=== PATIENT | male | born 1945 | race Caucasian/White ===

== ENCOUNTER 2020-06-15 06:02 | Inpatient (IN) ==
[2020-06-15] MEDS ORDERED: Morphine Sulfate 2 MG/ML SYRINGE IVP PRN (09:42)
[2020-06-15] MEDS ORDERED: Naloxone 0.4 MG/ML INJ IVP PRN (09:56)
[2020-06-15 11:30] LABS: Basophils % 0.2 %; Eosinophils % 0.1 %; Hematocrit 41.2 % (37.5-50.1); Hemoglobin 14.1 g/dL (12.9-16.9); Immature Granulocytes % 0.6 % (0-4); Lymphocytes # 3.5 K/mcL (0.6-4.6); Lymphocytes % 18.9 %; Mean Corpuscular HGB Conc 34.2 g/dL (31.6-35.5); Mean Corpuscular Hemoglobin 32.8 pg (28.0-33.3); Mean Corpuscular Volume 95.8 fL (83.0-100.0); Mean Platelet Volume 9.4 fL (9.4-12.4); Monocytes % 10.8 %; Neutrophils # 12.8 K/mcL (1.6-8.9); Platelet Count 382 K/mcL (140-400); Red Cell Distribution Width 13.9 % (11.5-14.5); Segmented Neutrophils % 69.4 %; White Blood Count 18.5 K/mcL (4.3-11.1)
[2020-06-15] MEDS: Ketorolac 15 MG/ML VIAL IVP SCH ×3 (11:36→18:17)
[2020-06-15] MEDS: cefTRIAXone 2,000 MG in Water for inj. (sterile) 20 ML IVP SCH (11:36)
[2020-06-15 11:54] LABS: BUN/Creatinine Ratio 28 (6-26); Blood Urea Nitrogen 27 mg/dL (8-23); Calcium 8.1 mg/dL (8.6-10.3); Carbon Dioxide 21 mEq/L (23-29); Chloride 105 mEq/L (98-107); Glucose 134 mg/dL (70-105); Osmolality,Calculated 291 (280-300); Potassium 3.9 mEq/L (3.5-5.1); Sodium 137 mEq/L (136-145); eGFR For African Americans > 60 (> 60); eGFR For Non-African Americans > 60 (> 60)
[2020-06-15 12:05] LABS: Bilirubin,Urine Negative (Negative); Blood,Urine Moderate (Negative); Clarity,Urine Clear (Clear); Color,Urine Light-Yellow (Yellow); Glucose,Urine (UA) Normal (Normal); Ketones,Urine 20 mg/dL (Negative); Leukocyte Esterase,Urine Trace (Negative); Mucus,Urine Few per lpf (None-Few); Nitrite,Urine Negative (Negative); Protein,Urine Trace mg/dL (Neg-Trace); RBC,Urine 30-50 per hpf (0-3); Urobilinogen,Urine Normal (Normal); WBC,Urine 0-3 per hpf (0-3)
[2020-06-15] MEDS ORDERED: *HR* HYDROmorphone (PF) 1 MG/ML SYRINGE IVP ONE (12:15)
[2020-06-15] MEDS ORDERED: *HR* HYDROmorphone 2 MG/ML SYRINGE IVP PRN (13:39)
[2020-06-15] MEDS ORDERED: 0.9 % Sodium Chloride 1,000 ML IVC SCH (14:00)
[2020-06-15] MEDS: *HR* Heparin 5,000 UNIT/ML VIAL SQ SCH ×2 (14:12→22:08)
[2020-06-15] MEDS ORDERED: *HR* OxyCODONE Immed Rel 15 MG TABLET PO PRN (15:46)
[2020-06-15] MEDS: *HR* OxyCODONE Immed Rel 15 MG TABLET PO PRN ×2 (16:25→22:26)
[2020-06-15] MEDS: Ondansetron 4 MG/2 ML VIAL IVP PRN ×2 (17:13→23:14)
[2020-06-15] MEDS: *HR* OxyCODONE Immed Rel 5 MG TABLET PO PRN (19:13)
[2020-06-15 20:33] LABS: Alanine Aminotransferase 18 Units/L (7-52); Aspartate Amino Transferase 22 Units/L (13-39); Ethanol < 10 mg/dL (Less than 10)
[2020-06-16] MEDS: Pantoprazole 40 MG in 0.9 % Sodium Chloride Mini Bag 100 ML IVC SCH ×2 (00:48→05:56)
[2020-06-16 01:08] LABS: Basophils % 0.1 %; Hematocrit 37.7 % (37.5-50.1); Hemoglobin 12.8 g/dL (12.9-16.9); Immature Granulocytes % 0.5 % (0-4); Lymphocytes # 4.1 K/mcL (0.6-4.6); Lymphocytes % 20.5 %; Mean Corpuscular Hemoglobin 32.7 pg (28.0-33.3); Mean Corpuscular Volume 96.2 fL (83.0-100.0); Mean Platelet Volume 9.6 fL (9.4-12.4); Monocytes # 1.6 K/mcL (0.0-1.3); Monocytes % 8.2 %; Neutrophils # 14.2 K/mcL (1.6-8.9); Platelet Count 346 K/mcL (140-400); Red Blood Count 3.92 M/mcL (4.19-5.50); Red Cell Distribution Width 13.8 % (11.5-14.5); Segmented Neutrophils % 70.7 %
[2020-06-16 01:21] LABS: BUN/Creatinine Ratio 35 (6-26); Blood Urea Nitrogen 33 mg/dL (8-23); Calcium 8.1 mg/dL (8.6-10.3); Carbon Dioxide 23 mEq/L (23-29); Chloride 105 mEq/L (98-107); Glucose 170 mg/dL (70-105); Osmolality,Calculated 293 (280-300); Potassium 3.4 mEq/L (3.5-5.1); Sodium 136 mEq/L (136-145); eGFR For African Americans > 60 (> 60); eGFR For Non-African Americans > 60 (> 60)
[2020-06-16] MEDS: *HR* OxyCODONE Immed Rel 5 MG TABLET PO PRN ×3 (01:39→15:19)
[2020-06-16] MEDS: *HR* OxyCODONE Immed Rel 15 MG TABLET PO PRN (04:52)
[2020-06-16] MEDS: *HR* Heparin 5,000 UNIT/ML VIAL SQ SCH ×2 (04:52→13:58)
[2020-06-16] MEDS: Ketorolac 15 MG/ML VIAL IVP SCH (06:00)
[2020-06-16] MEDS: cefTRIAXone 2,000 MG in Water for inj. (sterile) 20 ML IVP SCH (07:49)
[2020-06-16] MEDS: Pantoprazole 40 MG VIAL IVP SCH ×2 (07:49→17:57)
[2020-06-16] MEDS: Ondansetron 4 MG/2 ML VIAL IVP PRN ×3 (07:55→21:34)
[2020-06-16] MEDS ORDERED: Morphine Sulfate 2 MG/ML SYRINGE IVP ONE (08:25)
[2020-06-16] MEDS: Potassium Chloride Elixir 20 MEQ/15 ML UDC PO SCH ×2 (09:33→11:20)
[2020-06-16] MEDS ORDERED: Morphine Sulfate 2 MG/ML SYRINGE IVP PRN (09:43)
[2020-06-16] MEDS: 0.9 % Sodium Chloride 1,000 ML IVC SCH ×2 (11:17→20:01)
[2020-06-16] MEDS: Acetaminophen IV 1,000 MG/100 ML INFUS..BTL IVPB PRN ×2 (11:43→20:00)
[2020-06-16] MEDS: Morphine Sulfate 2 MG/ML SYRINGE IVP PRN ×2 (13:00→17:56)
[2020-06-16 14:43] LABS: Adenovirus Not Detected (Not Detect); Bordetella Pertussis Not Detected (Not Detect); Chlamydophila pneumoniae Not Detected (Not Detect); Coronavirus 229E Not Detected (Not Detect); Coronavirus HKU1 Not Detected (Not Detect); Coronavirus NL63 Not Detected (Not Detect); Coronavirus OC43 Not Detected (Not Detect); Human Metapneumovirus Not Detected (Not Detect); Human Rhinovirus/Enterovirus DETECTED (Not Detect); Influenza A Subtype 2009 H1 Not Detected (Not Detect); Influenza B Not Detected (Not Detect); Mycoplasma pneumoniae Not Detected (Not Detect); Parainfluenza Virus 1 Not Detected (Not Detect); Parainfluenza Virus 2 Not Detected (Not Detect); Parainfluenza Virus 3 Not Detected (Not Detect); Parainfluenza Virus 4 Not Detected (Not Detect); Respiratory Syncytial Virus Not Detected (Not Detect); SARS-CoV-2 Not Detected (Not Detect)
[2020-06-16] MEDS ORDERED: *HR* FentaNYL (PF) 100 MCG/2 ML VIAL ONE (15:55)
[2020-06-16] MEDS ORDERED: *HR* Midazolam HCl 5 MG/5 ML VIAL IVP ONE ×3 (15:56→23:56)
[2020-06-16] MEDS ORDERED: *HR* FentaNYL (PF) 100 MCG/2 ML VIAL IVP ONE ×2 (16:23→23:56)
[2020-06-16] MEDS ORDERED: *HR* EPINEPHrine 1 MG/10 ML SYRINGE INTRATRACH PRN (16:44)
[2020-06-16] MEDS ORDERED: 0.9 % Sodium Chloride 1,000 ML IV ONE (21:02)
[2020-06-16 21:38] LABS: Hematocrit 23.7 % (37.5-50.1)
[2020-06-16 21:39] LABS: Hemoglobin 8.2 g/dL (12.9-16.9)
[2020-06-16] MEDS ORDERED: 0.9 % Sodium Chloride 250 ML ONE (22:10)
[2020-06-16 23:59] LABS: Prothrombin Time 22.6 Seconds (9.4-12.1)
[2020-06-17] MEDS: Pantoprazole 40 MG in 0.9 % Sodium Chloride Mini Bag 100 ML IVC SCH ×5 (00:06→20:10)
[2020-06-17] MEDS ORDERED: 0.9 % Sodium Chloride 1,000 ML IVC ONE (00:23)
[2020-06-17] MEDS ORDERED: 0.9 % Sodium Chloride 250 ML IVC SCH ×2 (00:30)
[2020-06-17] MEDS ORDERED: 0.9 % Sodium Chloride 1,000 ML ONE ×2 (00:39→09:35)
[2020-06-17] MEDS: Morphine Sulfate 2 MG/ML SYRINGE IVP PRN (01:34)
[2020-06-17] MEDS: Ondansetron 4 MG/2 ML VIAL IVP PRN (01:34)
[2020-06-17 01:43] LABS: Hematocrit 24.2 % (37.5-50.1); Hemoglobin 8.1 g/dL (12.9-16.9)
[2020-06-17 02:05] LABS: BUN/Creatinine Ratio 40 (6-26); Blood Urea Nitrogen 38 mg/dL (8-23); Carbon Dioxide 19 mEq/L (23-29); Chloride 120 mEq/L (98-107); Glucose 172 mg/dL (70-105); Magnesium 1.5 mg/dL (1.6-2.6); Osmolality,Calculated 307 (280-300); Phosphorous 1.6 mg/dL (2.7-4.5); Potassium 3.6 mEq/L (3.5-5.1); Sodium 142 mEq/L (136-145); eGFR For African Americans > 60 (> 60); eGFR For Non-African Americans > 60 (> 60)
[2020-06-17] MEDS ORDERED: *HR* FentaNYL (PF) 100 MCG/2 ML VIAL ONE (02:29)
[2020-06-17] MEDS ORDERED: *HR* Propofol 200 MG/20 ML VIAL IVP ONE (02:29)
[2020-06-17] MEDS ORDERED: Lidocaine -MPF 2% 2 ML VIAL ONE (02:29)
[2020-06-17] MEDS ORDERED: *HR* Succinylcholine 200 MG/10 ML VIAL IVP ONE (02:29)
[2020-06-17] MEDS: 0.9 % Sodium Chloride 1,000 ML IVC SCH (02:34)
[2020-06-17] MEDS ORDERED: *HR* EPINEPHrine 1 MG/10 ML SYRINGE INTRATRACH PRN (03:22)
[2020-06-17] MEDS ORDERED: Artificial Tears SOLN 15 ML BOTTLE BOTH EYES PRN (03:25)
[2020-06-17] MEDS ORDERED: Midazolam HCl 50 MG/100 ML IV.SOLN IVC SCH (03:30)
[2020-06-17] MEDS ORDERED: *HR* Midazolam HCl 5 MG/5 ML VIAL IVP ONE ×2 (03:38→03:39)
[2020-06-17] MEDS: Calcium Gluconate 1gm/50mL 1 GM/50 ML BAG IVPB PRN ×2 (03:42→14:57)
[2020-06-17] MEDS: Potassium Chloride 40 MEQ/200 ML BAG IVPB PRN ×2 (03:43→15:01)
[2020-06-17] MEDS: Artificial Tears SOLN 15 ML BOTTLE BOTH EYES SCH ×6 (04:15→23:39)
[2020-06-17] MEDS: FentaNYL (PF) 1,000 MCG/100 ML IV.SOLN IVC SCH ×3 (04:16→22:52)
[2020-06-17 04:26] LABS: VBG Ionized Calcium 1.05 mmol/L (1.15-1.35)
[2020-06-17 04:39] LABS: Basophils % 0.1 %
[2020-06-17 04:41] LABS: Hematocrit 21.9 % (37.5-50.1); Hemoglobin 7.3 g/dL (12.9-16.9); Immature Granulocytes % 1.2 % (0-4); Lymphocytes # 8.2 K/mcL (0.6-4.6); Lymphocytes % 30.2 %; Mean Corpuscular HGB Conc 33.3 g/dL (31.6-35.5); Mean Corpuscular Hemoglobin 31.7 pg (28.0-33.3); Mean Corpuscular Volume 95.2 fL (83.0-100.0); Mean Platelet Volume 10.7 fL (9.4-12.4); Monocytes # 1.7 K/mcL (0.0-1.3); Monocytes % 6.2 %; Nucleated Red Blood Cells 0.1 /100 WBC (0); Platelet Count 162 K/mcL (140-400); Red Cell Distribution Width 17.3 % (11.5-14.5); Segmented Neutrophils % 62.3 %; White Blood Count 27.3 K/mcL (4.3-11.1)
[2020-06-17 04:49] LABS: ABG Base Excess -4 mEq/L (-2 to 3); ABG HCO3 21 mEq/L (21-27); ABG Oxygen Saturation 98 % (95-98); ABG PCO2 34 mmHg (35-45); ABG PH 7.39 pH Units (7.32-7.45); ABG PO2 98 mmHg (85-104); ABG TCO2 22 mEq/L (20-26); Blood Gas Modality AF; Blood Gas VT 450 cc
[2020-06-17 04:52] LABS: INR 1.7; Prothrombin Time 19.1 Seconds (9.4-12.1)
[2020-06-17 04:53] LABS: BUN/Creatinine Ratio 38 (6-26); Blood Urea Nitrogen 36 mg/dL (8-23); Calcium 6.6 mg/dL (8.6-10.3); Carbon Dioxide 19 mEq/L (23-29); Chloride 117 mEq/L (98-107); Glucose 170 mg/dL (70-105); Osmolality,Calculated 306 (280-300); Potassium 3.8 mEq/L (3.5-5.1); Sodium 142 mEq/L (136-145); eGFR For African Americans > 60 (> 60); eGFR For Non-African Americans > 60 (> 60)
[2020-06-17 04:54] LABS: Activated Partial Thrombo Time 23.2 Seconds (26.0-36.0)
[2020-06-17] MEDS ORDERED: Furosemide 20 MG/2 ML VIAL IVP ONE ×2 (05:59→16:00)
[2020-06-17] MEDS: Chlorhexidine Rinse 15 ML MOUTHWASH MM SCH ×2 (08:37→19:56)
[2020-06-17] MEDS ORDERED: Heparin 1,000 UNITS/500 mL 500 ML ONE (09:22)
[2020-06-17] MEDS ORDERED: 0.9 % Sodium Chloride 500 ML ONE (09:22)
[2020-06-17] MEDS ORDERED: Lidocaine/EPI 1:100k 1% 50 ML VIAL ONE (09:22)
[2020-06-17] MEDS ORDERED: MethylPREDNISolone 40 MG/ML VIAL IVP STA (09:33)
[2020-06-17] MEDS ORDERED: methylPREDNISolone 125 MG/2 ML VIAL ONE (09:35)
[2020-06-17] MEDS ORDERED: Isovue-300 50ML VIAL IVP ONE ×2 (10:07→10:21)
[2020-06-17] MEDS: cefTRIAXone 2,000 MG in Water for inj. (sterile) 20 ML IVP SCH (11:50)
[2020-06-17 12:29] LABS: VBG Ionized Calcium 1.08 mmol/L (1.15-1.35)
[2020-06-17 12:29] LABS: Hematocrit 24.2 % (37.5-50.1); Hemoglobin 7.8 g/dL (12.9-16.9)
[2020-06-17 12:45] LABS: BUN/Creatinine Ratio 33 (6-26); Blood Urea Nitrogen 32 mg/dL (8-23); Calcium 6.9 mg/dL (8.6-10.3); Carbon Dioxide 22 mEq/L (23-29); Chloride 117 mEq/L (98-107); Glucose 132 mg/dL (70-105); Osmolality,Calculated 307 (280-300); Potassium 3.6 mEq/L (3.5-5.1); Sodium 144 mEq/L (136-145); eGFR For African Americans > 60 (> 60); eGFR For Non-African Americans > 60 (> 60)
[2020-06-17] MEDS ORDERED: Albumin Human 5% 12.5 GM/250 ML IV.SOLN IVPB ONE (13:46)
[2020-06-17 18:12] LABS: Hematocrit 27.7 % (37.5-50.1); Hemoglobin 9.3 g/dL (12.9-16.9)
[2020-06-18] MEDS: Pantoprazole 40 MG in 0.9 % Sodium Chloride Mini Bag 100 ML IVC SCH ×6 (01:25→21:56)
[2020-06-18] MEDS: Artificial Tears SOLN 15 ML BOTTLE BOTH EYES SCH ×3 (03:32→12:02)
[2020-06-18 04:43] LABS: Basophils % 0.2 %; Hemoglobin 8.3 g/dL (12.9-16.9)
[2020-06-18 04:44] LABS: Basophils # 0.1 K/mcL (0.0-0.2); Hematocrit 24.9 % (37.5-50.1); Immature Granulocytes % 1.6 % (0-4); Lymphocytes # 4.8 K/mcL (0.6-4.6); Lymphocytes % 19.1 %; Mean Corpuscular HGB Conc 33.3 g/dL (31.6-35.5); Mean Corpuscular Hemoglobin 30.4 pg (28.0-33.3); Mean Corpuscular Volume 91.2 fL (83.0-100.0); Mean Platelet Volume 10.3 fL (9.4-12.4); Monocytes # 1.4 K/mcL (0.0-1.3); Monocytes % 5.7 %; Neutrophils # 18.4 K/mcL (1.6-8.9); Nucleated Red Blood Cells 0.1 /100 WBC (0); Platelet Count 148 K/mcL (140-400); Red Blood Count 2.73 M/mcL (4.19-5.50); Red Cell Distribution Width 19.9 % (11.5-14.5); Segmented Neutrophils % 73.4 %
[2020-06-18 05:01] LABS: Anisocytosis 1+ (Not Present); Platelet Estimate Normal (Normal)
[2020-06-18 05:03] LABS: BUN/Creatinine Ratio 25 (6-26); Blood Urea Nitrogen 28 mg/dL (8-23); Calcium 7.7 mg/dL (8.6-10.3); Carbon Dioxide 24 mEq/L (23-29); Chloride 115 mEq/L (98-107); Glucose 116 mg/dL (70-105); Osmolality,Calculated 306 (280-300); Phosphorous 4.9 mg/dL (2.7-4.5); Potassium 3.8 mEq/L (3.5-5.1); Sodium 145 mEq/L (136-145); eGFR For African Americans > 60 (> 60); eGFR For Non-African Americans > 60 (> 60)
[2020-06-18 05:41] LABS: ABG Base Excess 0 mEq/L (-2 to 3); ABG HCO3 25 mEq/L (21-27); ABG Oxygen Saturation 96 % (95-98); ABG PCO2 44 mmHg (35-45); ABG PH 7.37 pH Units (7.32-7.45); ABG PO2 87 mmHg (85-104); ABG TCO2 27 mEq/L (20-26); Blood Gas Modality AF; Blood Gas VT 450 cc
[2020-06-18] MEDS: Potassium Chloride 40 MEQ/200 ML BAG IVPB PRN (05:55)
[2020-06-18 06:19] LABS: VBG Ionized Calcium 1.13 mmol/L (1.15-1.35)
[2020-06-18] MEDS: FentaNYL (PF) 1,000 MCG/100 ML IV.SOLN IVC SCH (08:16)
[2020-06-18] MEDS: Chlorhexidine Rinse 15 ML MOUTHWASH MM SCH (08:30)
[2020-06-18] MEDS: Morphine Sulfate 2 MG/ML SYRINGE IVP PRN ×2 (09:53→18:21)
[2020-06-18] MEDS ORDERED: Naloxone 0.4 MG/ML INJ IVP PRN (10:42)
[2020-06-18] MEDS: *HR* OxyCODONE Immed Rel 5 MG TABLET PO PRN ×3 (11:04→20:18)
[2020-06-18] MEDS: cefTRIAXone 2,000 MG in Water for inj. (sterile) 20 ML IVP SCH (11:04)
[2020-06-18] MEDS ORDERED: *HR* OxyCODONE Immed Rel 15 MG TABLET PO ONE (12:30)
[2020-06-18 16:45] LABS: Hematocrit 24.5 % (37.5-50.1); Hemoglobin 7.9 g/dL (12.9-16.9)
[2020-06-18 23:27] LABS: Hematocrit 20.5 % (37.5-50.1); Hemoglobin 6.7 g/dL (12.9-16.9)
[2020-06-19] MEDS: Pantoprazole 40 MG in 0.9 % Sodium Chloride Mini Bag 100 ML IVC SCH ×4 (03:28→18:48)
[2020-06-19] MEDS: *HR* OxyCODONE Immed Rel 5 MG TABLET PO PRN ×2 (04:07→07:56)
[2020-06-19 04:13] LABS: Basophils # 0.1 K/mcL (0.0-0.2); Basophils % 0.3 %; Eosinophils # 0.3 K/mcL (0.0-0.6); Eosinophils % 1.3 %; Hematocrit 20.1 % (37.5-50.1); Hemoglobin 6.6 g/dL (12.9-16.9); Immature Granulocytes % 3.1 % (0-4); Lymphocytes # 8.9 K/mcL (0.6-4.6); Lymphocytes % 36.4 %; Mean Corpuscular HGB Conc 32.8 g/dL (31.6-35.5); Mean Corpuscular Hemoglobin 30.8 pg (28.0-33.3); Mean Corpuscular Volume 93.9 fL (83.0-100.0); Mean Platelet Volume 10.5 fL (9.4-12.4); Monocytes # 1.5 K/mcL (0.0-1.3); Nucleated Red Blood Cells 3.6 /100 WBC (0); Platelet Count 149 K/mcL (140-400); Red Blood Count 2.14 M/mcL (4.19-5.50); Red Cell Distribution Width 18.7 % (11.5-14.5); Segmented Neutrophils % 52.9 %; White Blood Count 24.5 K/mcL (4.3-11.1)
[2020-06-19] MEDS ORDERED: 0.9 % Sodium Chloride 250 ML IVC SCH (04:30)
[2020-06-19 04:31] LABS: BUN/Creatinine Ratio 26 (6-26); Blood Urea Nitrogen 24 mg/dL (8-23); Calcium 7.2 mg/dL (8.6-10.3); Carbon Dioxide 26 mEq/L (23-29); Chloride 108 mEq/L (98-107); Glucose 105 mg/dL (70-105); Magnesium 1.7 mg/dL (1.6-2.6); Osmolality,Calculated 292 (280-300); Phosphorous 2.8 mg/dL (2.7-4.5); Potassium 3.4 mEq/L (3.5-5.1); Sodium 139 mEq/L (136-145); eGFR For African Americans > 60 (> 60); eGFR For Non-African Americans > 60 (> 60)
[2020-06-19] MEDS: Calcium Gluconate 1gm/50mL 1 GM/50 ML BAG IVPB PRN (05:18)
[2020-06-19] MEDS: Potassium Chloride 40 MEQ/200 ML BAG IVPB PRN (05:19)
[2020-06-19] MEDS: Morphine Sulfate 2 MG/ML SYRINGE IVP PRN (07:04)
[2020-06-19] MEDS ORDERED: *HR* OxyCODONE Immed Rel 15 MG TABLET PO PRN (09:38)
[2020-06-19] MEDS: *HR* OxyCODONE Immed Rel 15 MG TABLET PO SCH ×4 (10:38→22:20)
[2020-06-19] MEDS ORDERED: Pantoprazole 40 MG VIAL ONE (11:16)
[2020-06-19] MEDS: cefTRIAXone 2,000 MG in Water for inj. (sterile) 20 ML IVP SCH (11:19)
[2020-06-19 11:27] LABS: Hematocrit 25.9 % (37.5-50.1)
[2020-06-19 11:30] LABS: INR 1.1; Prothrombin Time 12.4 Seconds (9.4-12.1)
[2020-06-19 11:31] LABS: Hemoglobin 8.5 g/dL (12.9-16.9)
[2020-06-19 11:33] LABS: Activated Partial Thrombo Time 23.9 Seconds (26.0-36.0)
[2020-06-20] MEDS ORDERED: *HR* Metoprolol 5 MG/5 ML VIAL IVP ONE (02:09)
[2020-06-20] MEDS: Pantoprazole 40 MG in 0.9 % Sodium Chloride Mini Bag 100 ML IVC SCH ×3 (03:28→12:38)
[2020-06-20] MEDS: *HR* OxyCODONE Immed Rel 15 MG TABLET PO SCH ×6 (03:39→23:59)
[2020-06-20 04:36] LABS: Basophils # 0.1 K/mcL (0.0-0.2); Basophils % 0.5 %; Eosinophils # 0.5 K/mcL (0.0-0.6); Eosinophils % 2.4 %; Hematocrit 25.6 % (37.5-50.1); Hemoglobin 8.3 g/dL (12.9-16.9); Immature Granulocytes % 3.5 % (0-4); Lymphocytes # 5.3 K/mcL (0.6-4.6); Lymphocytes % 25.4 %; Mean Corpuscular HGB Conc 32.4 g/dL (31.6-35.5); Mean Corpuscular Hemoglobin 30.5 pg (28.0-33.3); Mean Corpuscular Volume 94.1 fL (83.0-100.0); Mean Platelet Volume 10.3 fL (9.4-12.4); Monocytes # 1.5 K/mcL (0.0-1.3); Monocytes % 7.1 %; Neutrophils # 12.8 K/mcL (1.6-8.9); Platelet Count 162 K/mcL (140-400); Red Blood Count 2.72 M/mcL (4.19-5.50); Red Cell Distribution Width 18.3 % (11.5-14.5); Segmented Neutrophils % 61.1 %
[2020-06-20 04:37] LABS: VBG Ionized Calcium 1.11 mmol/L (1.15-1.35)
[2020-06-20 04:55] LABS: Alanine Aminotransferase 64 Units/L (7-52); Albumin 2.8 g/dL (3.5-5.7); Albumin/Globulin Ratio 1.4 (1.1-2.2); Alkaline Phosphatase 50 Units/L (34-104); Aspartate Amino Transferase 48 Units/L (13-39); BUN/Creatinine Ratio 15 (6-26); Bilirubin,Total 0.3 mg/dL (0.3-1.0); Blood Urea Nitrogen 15 mg/dL (8-23); Calcium 7.6 mg/dL (8.6-10.3); Carbon Dioxide 26 mEq/L (23-29); Chloride 105 mEq/L (98-107); Glucose 116 mg/dL (70-105); Osmolality,Calculated 284 (280-300); Potassium 3.3 mEq/L (3.5-5.1); Sodium 136 mEq/L (136-145); Total Protein 4.8 g/dL (6.4-8.9); eGFR For African Americans > 60 (> 60); eGFR For Non-African Americans > 60 (> 60)
[2020-06-20 04:56] LABS: BUN/Creatinine Ratio 15 (6-26); Blood Urea Nitrogen 15 mg/dL (8-23); Calcium 7.5 mg/dL (8.6-10.3); Carbon Dioxide 26 mEq/L (23-29); Chloride 106 mEq/L (98-107); Glucose 116 mg/dL (70-105); Magnesium 1.7 mg/dL (1.6-2.6); Osmolality,Calculated 284 (280-300); Phosphorous 3.3 mg/dL (2.7-4.5); Potassium 3.3 mEq/L (3.5-5.1); Sodium 136 mEq/L (136-145); eGFR For African Americans > 60 (> 60); eGFR For Non-African Americans > 60 (> 60)
[2020-06-20] MEDS: cefTRIAXone 2,000 MG in Water for inj. (sterile) 20 ML IVP SCH (11:37)
[2020-06-20] MEDS: Potassium Chloride Elixir 20 MEQ/15 ML UDC PO SCH ×2 (11:37→15:09)
[2020-06-20] MEDS: Pantoprazole 40 MG VIAL IVP SCH (17:17)
[2020-06-21] MEDS ORDERED: *HR* Metoprolol 5 MG/5 ML VIAL IVP ONE (00:12)
[2020-06-21 00:47] LABS: Basophils # 0.1 K/mcL (0.0-0.2); Basophils % 0.6 %; Eosinophils # 0.6 K/mcL (0.0-0.6); Eosinophils % 3.4 %; Hematocrit 25.4 % (37.5-50.1); Hemoglobin 8.1 g/dL (12.9-16.9); Immature Granulocytes % 4.2 % (0-4); Lymphocytes # 5.2 K/mcL (0.6-4.6); Lymphocytes % 28.5 %; Mean Corpuscular HGB Conc 31.9 g/dL (31.6-35.5); Mean Corpuscular Volume 94.1 fL (83.0-100.0); Monocytes # 1.4 K/mcL (0.0-1.3); Monocytes % 7.5 %; Neutrophils # 10.1 K/mcL (1.6-8.9); Nucleated Red Blood Cells 2.7 /100 WBC (0); Platelet Count 194 K/mcL (140-400); Red Cell Distribution Width 18.5 % (11.5-14.5); Segmented Neutrophils % 55.8 %; White Blood Count 18.2 K/mcL (4.3-11.1)
[2020-06-21 01:14] LABS: BUN/Creatinine Ratio 12 (6-26); Blood Urea Nitrogen 13 mg/dL (8-23); Calcium 7.5 mg/dL (8.6-10.3); Carbon Dioxide 22 mEq/L (23-29); Chloride 106 mEq/L (98-107); Glucose 122 mg/dL (70-105); Magnesium 1.8 mg/dL (1.6-2.6); Osmolality,Calculated 281 (280-300); Potassium 3.8 mEq/L (3.5-5.1); Sodium 135 mEq/L (136-145); eGFR For African Americans > 60 (> 60); eGFR For Non-African Americans > 60 (> 60)
[2020-06-21] MEDS: Calcium Gluconate 1gm/50mL 1 GM/50 ML BAG IVPB SCH ×2 (01:29→02:16)
[2020-06-21] MEDS: Morphine Sulfate 2 MG/ML SYRINGE IVP PRN (03:12)
[2020-06-21] MEDS: *HR* OxyCODONE Immed Rel 15 MG TABLET PO SCH ×3 (03:50→11:31)
[2020-06-21] MEDS: Pantoprazole 40 MG VIAL IVP SCH (06:39)
[2020-06-21 10:08] VITALS: BP 98/57
[2020-06-21] MEDS: cefTRIAXone 2,000 MG in Water for inj. (sterile) 20 ML IVP SCH (11:31)
== END 2020-06-21 13:28 | disposition home or self-care (01) | DRG 853 ==
LOC: 3BNU → 2NNU 06-16 17:50 → ICNU 06-16 23:49 → 3ANU 06-19 09:06
PROVIDERS: ADMIT Family Medicine; ATTEND Family Medicine

== ENCOUNTER 2020-07-05 14:26 | Inpatient (IN) ==
[2020-07-05] MEDS ORDERED: *HR* HYDROmorphone (PF) 1 MG/ML SYRINGE IVP ONE ×2 (15:19→17:40)
[2020-07-05] MEDS ORDERED: Pantoprazole 40 MG VIAL IVP ONE (15:20)
[2020-07-05 15:49] LABS: Basophils # 0.1 K/mcL (0.0-0.2); Basophils % 0.4 %; Eosinophils # 0.3 K/mcL (0.0-0.6); Eosinophils % 1.5 %; Hematocrit 29.3 % (37.5-50.1); Hemoglobin 8.9 g/dL (12.9-16.9); Lymphocytes # 4.2 K/mcL (0.6-4.6); Lymphocytes % 19.3 %; Mean Corpuscular HGB Conc 30.4 g/dL (31.6-35.5); Mean Corpuscular Hemoglobin 28.3 pg (28.0-33.3); Mean Corpuscular Volume 93.3 fL (83.0-100.0); Mean Platelet Volume 9.2 fL (9.4-12.4); Monocytes % 13.9 %; Neutrophils # 13.9 K/mcL (1.6-8.9); Nucleated Red Blood Cells 0.4 /100 WBC (0); Platelet Count 587 K/mcL (140-400); Red Blood Count 3.14 M/mcL (4.19-5.50); Red Cell Distribution Width 16.3 % (11.5-14.5); Segmented Neutrophils % 63.9 %; White Blood Count 21.8 K/mcL (4.3-11.1)
[2020-07-05 15:55] LABS: INR 1.2; Prothrombin Time 13.9 Seconds (9.4-12.1)
[2020-07-05 16:08] LABS: Potassium 4.2 mEq/L (3.5-5.1)
[2020-07-05 16:09] LABS: Albumin 3.3 g/dL (3.5-5.7); Bilirubin,Indirect 0.3 mg/dL (0.0-1.0); Bilirubin,Total 0.3 mg/dL (0.3-1.0); Globulin 3.4 g/dL (2.4-3.5); Total Protein 6.7 g/dL (6.4-8.9)
[2020-07-05 17:35] LABS: Hematocrit 27.8 % (37.5-50.1); Hemoglobin 8.4 g/dL (12.9-16.9)
[2020-07-05] MEDS ORDERED: Naloxone 0.4 MG/ML INJ IVP PRN (18:24)
[2020-07-05] MEDS ORDERED: Ondansetron 4 MG/2 ML VIAL IVP PRN (18:24)
[2020-07-05] MEDS: *HR* HYDROmorphone 2 MG/ML SYRINGE IVP PRN (21:00)
[2020-07-05] MEDS: Piperacillin/Tazobactam 3.375 GM in 0.9 % Sodium Chloride Mini Bag 100 ML IVPB SCH (21:12)
[2020-07-05] MEDS: 0.9 % Sodium Chloride 1,000 ML IVC SCH (21:12)
[2020-07-05 22:56] LABS: Hematocrit 27.4 % (37.5-50.1); Hemoglobin 8.4 g/dL (12.9-16.9)
[2020-07-06] MEDS: *HR* HYDROmorphone 2 MG/ML SYRINGE IVP PRN ×6 (01:01→22:15)
[2020-07-06] MEDS: Piperacillin/Tazobactam 3.375 GM in 0.9 % Sodium Chloride Mini Bag 100 ML IVPB SCH ×2 (03:57→11:35)
[2020-07-06] MEDS: Pantoprazole 40 MG VIAL IVP SCH ×2 (05:14→17:57)
[2020-07-06 05:47] LABS: BUN/Creatinine Ratio 10 (6-26); Blood Urea Nitrogen 13 mg/dL (8-23); Calcium 8.5 mg/dL (8.6-10.3); Carbon Dioxide 22 mEq/L (23-29); Chloride 104 mEq/L (98-107); Ferritin 36 ng/mL (20-250); Glucose 98 mg/dL (70-105); Iron < 10 mcg/dL (65-175); Osmolality,Calculated 280 (280-300); Potassium 4.3 mEq/L (3.5-5.1); Sodium 135 mEq/L (136-145); Transferrin 209 mg/dL (203-362); eGFR For African Americans > 60 (> 60); eGFR For Non-African Americans 55 (> 60)
[2020-07-06 05:48] LABS: Hemoglobin 9.1 g/dL (12.9-16.9)
[2020-07-06 05:49] LABS: Basophils # 0.1 K/mcL (0.0-0.2); Basophils % 0.4 %; Eosinophils # 0.7 K/mcL (0.0-0.6); Eosinophils % 4.3 %; Hematocrit 30.5 % (37.5-50.1); Hemoglobin 9.1 g/dL (12.9-16.9); Immature Granulocytes % 0.8 % (0-4); Lymphocytes # 3.5 K/mcL (0.6-4.6); Lymphocytes % 22.1 %; Mean Corpuscular HGB Conc 29.8 g/dL (31.6-35.5); Mean Corpuscular Hemoglobin 27.8 pg (28.0-33.3); Mean Corpuscular Volume 93.3 fL (83.0-100.0); Monocytes # 1.9 K/mcL (0.0-1.3); Monocytes % 12.1 %; Neutrophils # 9.6 K/mcL (1.6-8.9); Nucleated Red Blood Cells 0.7 /100 WBC (0); Platelet Count 618 K/mcL (140-400); Red Blood Count 3.27 M/mcL (4.19-5.50); Red Cell Distribution Width 16.3 % (11.5-14.5); Segmented Neutrophils % 60.3 %; White Blood Count 15.9 K/mcL (4.3-11.1)
[2020-07-06 05:52] LABS: Folate > 22.3 ng/mL (3.0-16.0); Vitamin B12 424 pg/mL (250-1100)
[2020-07-06] MEDS: Finasteride 5 MG TABLET PO SCH (07:59)
[2020-07-06] MEDS ORDERED: *HR* HYDROmorphone 2 MG/ML SYRINGE IVP PRN (09:50)
[2020-07-06 11:19] LABS: Hematocrit 27.4 % (37.5-50.1); Hemoglobin 8.4 g/dL (12.9-16.9)
[2020-07-06] MEDS: Metoprolol XL (24 HR) Succ 25 MG TAB.ER.24H PO SCH (11:34)
[2020-07-06] MEDS: *HR* OxyCODONE Immed Rel 5 MG TABLET PO SCH ×2 (11:34→15:41)
[2020-07-06] MEDS: Acetaminophen 325 MG TABLET PO PRN (11:34)
[2020-07-06] MEDS: 0.9 % Sodium Chloride 1,000 ML IVC SCH ×2 (11:35→20:54)
[2020-07-06 17:26] LABS: Hematocrit 27.3 % (37.5-50.1); Hemoglobin 8.6 g/dL (12.9-16.9)
[2020-07-06 17:56] LABS: Adenovirus F 40/41 PCR Not detected (Not detect); Astrovirus PCR Not detected (Not detect); Campylobacter by PCR Not detected (Not detect); Cryptosporidium by PCR Not detected (Not detect); Cyclospora cayetanensis PCR Not detected (Not detect); E. coli O157 by PCR Not detected (Not detect); Entamoeba histolytica PCR Not detected (Not detect); Enteroaggregative E.coli(EAEC) Not detected (Not detect); Enteropathogenic E.coli(EPEC) Not detected (Not detect); Enterotoxigenic E.coli (ETEC) Not detected (Not detect); Giardia lamblia PCR Not detected (Not detect); Norovirus GI/GII PCR Not detected (Not detect); Plesiomonas shigelloides PCR Not detected (Not detect); Rotavirus A PCR Not detected (Not detect); Salmonella PCR Not detected (Not detect); Sapovirus PCR Not detected (Not detect); Shig/EnteroinvasiveE coli EIEC Not detected (Not detect); Shigalike tox-prod E coli STEC Not detected (Not detect); Vibrio PCR Not detected (Not detect); Vibrio cholerae PCR Not detected (Not detect); Yersinia enterocolitica PCR Not detected (Not detect)
[2020-07-06 18:03] LABS: C.difficile Toxin A/B Gene PCR DETECTED (Not detect)
[2020-07-06] MEDS: *HR* OxyCODONE Immed Rel 15 MG TABLET PO PRN (20:54)
[2020-07-06] MEDS: Vancomycin Oral Soln 125 MG/2.5 ML UDC PO SCH (22:44)
[2020-07-07] MEDS: Acetaminophen 325 MG TABLET PO PRN (00:06)
[2020-07-07] MEDS: *HR* HYDROmorphone 2 MG/ML SYRINGE IVP PRN ×5 (02:16→21:39)
[2020-07-07] MEDS: *HR* OxyCODONE Immed Rel 15 MG TABLET PO PRN ×2 (04:06→10:05)
[2020-07-07] MEDS: Pantoprazole 40 MG VIAL IVP SCH ×2 (05:33→16:48)
[2020-07-07] MEDS: 0.9 % Sodium Chloride 1,000 ML IVC SCH ×2 (06:20→16:49)
[2020-07-07 06:29] LABS: Hematocrit 26.1 % (37.5-50.1); Hemoglobin 8.1 g/dL (12.9-16.9); Mean Corpuscular Volume 93.5 fL (83.0-100.0); Mean Platelet Volume 8.9 fL (9.4-12.4); Nucleated Red Blood Cells 0.2 /100 WBC (0); Platelet Count 510 K/mcL (140-400); Red Blood Count 2.79 M/mcL (4.19-5.50); Red Cell Distribution Width 16.2 % (11.5-14.5)
[2020-07-07 06:33] LABS: White Blood Count 33.8 K/mcL (4.3-11.1)
[2020-07-07 06:43] LABS: BUN/Creatinine Ratio 10 (6-26); Blood Urea Nitrogen 10 mg/dL (8-23); Carbon Dioxide 21 mEq/L (23-29); Chloride 105 mEq/L (98-107); Glucose 82 mg/dL (70-105); Magnesium 1.8 mg/dL (1.6-2.6); Osmolality,Calculated 278 (280-300); Potassium 3.8 mEq/L (3.5-5.1); Sodium 135 mEq/L (136-145); eGFR For African Americans > 60 (> 60); eGFR For Non-African Americans > 60 (> 60)
[2020-07-07 06:53] LABS: Macrocytosis Present (Not Present)
[2020-07-07 06:54] LABS: Hypochromasia Present (Not Present); Toxic Granulation Present (Not Present)
[2020-07-07 06:56] LABS: Lymphocytes # 3.4 K/mcL (0.6-4.6); Monocytes # 1.4 K/mcL (0.0-1.3); Neutrophils # 29.1 K/mcL (1.6-8.9); Polychromasia 1+ (Not Present); Toxic Vacuolation Present (Not Present)
[2020-07-07] MEDS: Vancomycin Oral Soln 125 MG/2.5 ML UDC PO SCH ×4 (08:53→21:38)
[2020-07-07] MEDS: Metoprolol XL (24 HR) Succ 25 MG TAB.ER.24H PO SCH (08:53)
[2020-07-07] MEDS: Finasteride 5 MG TABLET PO SCH (08:53)
[2020-07-07] MEDS: Acetaminophen IV 1,000 MG/100 ML INFUS..BTL IVPB SCH ×3 (10:10→16:48)
[2020-07-07] MEDS: MetroNIDAZOLE 500 MG/100 ML 500 MG/100 ML BAG IVPB SCH (16:49)
[2020-07-07] MEDS: *HR* OxyCODONE Immed Rel 15 MG TABLET PO SCH ×2 (18:22→22:43)
[2020-07-08] MEDS: MetroNIDAZOLE 500 MG/100 ML 500 MG/100 ML BAG IVPB SCH ×4 (00:10→23:45)
[2020-07-08] MEDS: Acetaminophen IV 1,000 MG/100 ML INFUS..BTL IVPB SCH ×5 (01:15→23:26)
[2020-07-08] MEDS: *HR* OxyCODONE Immed Rel 15 MG TABLET PO SCH ×6 (03:04→22:03)
[2020-07-08] MEDS: 0.9 % Sodium Chloride 1,000 ML IVC SCH ×2 (03:10→17:18)
[2020-07-08] MEDS: Pantoprazole 40 MG VIAL IVP SCH ×2 (06:10→17:19)
[2020-07-08 08:03] LABS: Basophils # 0.1 K/mcL (0.0-0.2); Basophils % 0.4 %; Eosinophils % 5.6 %; Hematocrit 27.2 % (37.5-50.1); Hemoglobin 8.3 g/dL (12.9-16.9); Immature Granulocytes % 1.3 % (0-4); Lymphocytes # 3.8 K/mcL (0.6-4.6); Mean Corpuscular HGB Conc 30.5 g/dL (31.6-35.5); Mean Corpuscular Hemoglobin 28.7 pg (28.0-33.3); Mean Corpuscular Volume 94.1 fL (83.0-100.0); Mean Platelet Volume 8.9 fL (9.4-12.4); Monocytes # 1.7 K/mcL (0.0-1.3); Monocytes % 9.6 %; Neutrophils # 11.2 K/mcL (1.6-8.9); Nucleated Red Blood Cells 0.6 /100 WBC (0); Platelet Count 513 K/mcL (140-400); Red Blood Count 2.89 M/mcL (4.19-5.50); Red Cell Distribution Width 16.4 % (11.5-14.5); Segmented Neutrophils % 62.1 %; White Blood Count 18.1 K/mcL (4.3-11.1)
[2020-07-08 08:33] LABS: Alanine Aminotransferase 6 Units/L (7-52); Albumin 2.6 g/dL (3.5-5.7); Albumin/Globulin Ratio 0.9 (1.1-2.2); Alkaline Phosphatase 55 Units/L (34-104); Aspartate Amino Transferase 10 Units/L (13-39); BUN/Creatinine Ratio 10 (6-26); Bilirubin,Total 0.2 mg/dL (0.3-1.0); Blood Urea Nitrogen 10 mg/dL (8-23); Carbon Dioxide 24 mEq/L (23-29); Chloride 108 mEq/L (98-107); Globulin 2.8 g/dL (2.4-3.5); Glucose 108 mg/dL (70-105); Osmolality,Calculated 282 (280-300); Sodium 136 mEq/L (136-145); Total Protein 5.4 g/dL (6.4-8.9); eGFR For African Americans > 60 (> 60); eGFR For Non-African Americans > 60 (> 60)
[2020-07-08] MEDS: Finasteride 5 MG TABLET PO SCH (10:09)
[2020-07-08] MEDS: Metoprolol XL (24 HR) Succ 25 MG TAB.ER.24H PO SCH (10:10)
[2020-07-08] MEDS: Vancomycin Oral Soln 125 MG/2.5 ML UDC PO SCH ×4 (10:10→19:55)
[2020-07-08] MEDS: Lactobacillus 1 EACH CAP.SPRINK PO SCH ×2 (10:14→19:54)
[2020-07-08 13:09] LABS: Bilirubin,Urine Negative (Negative); Blood,Urine Negative (Negative); Clarity,Urine Clear (Clear); Color,Urine Yellow (Yellow); Glucose,Urine (UA) Normal (Normal); Ketones,Urine 40 mg/dL (Negative); Leukocyte Esterase,Urine Negative (Negative); Mucus,Urine Few per lpf (None-Few); Nitrite,Urine Negative (Negative); Protein,Urine 70 mg/dL (Neg-Trace); Specific Gravity,Urine > 1.030 (1.010-1.025); Squamous Epithelial Cell,Urine Few per hpf (None-Few); Urobilinogen,Urine Normal (Normal)
[2020-07-08] MEDS: *HR* HYDROmorphone 2 MG/ML SYRINGE IVP PRN (19:44)
[2020-07-08] MEDS: Nystatin POWDER 30 GM BOTTLE TP SCH (19:57)
[2020-07-09] MEDS: *HR* OxyCODONE Immed Rel 15 MG TABLET PO SCH ×6 (01:44→21:52)
[2020-07-09] MEDS: 0.9 % Sodium Chloride 1,000 ML IVC SCH ×2 (04:11→17:01)
[2020-07-09] MEDS: Pantoprazole 40 MG VIAL IVP SCH ×2 (05:30→17:32)
[2020-07-09] MEDS: Acetaminophen IV 1,000 MG/100 ML INFUS..BTL IVPB SCH (05:31)
[2020-07-09] MEDS: *HR* HYDROmorphone 2 MG/ML SYRINGE IVP PRN ×2 (05:35→20:19)
[2020-07-09 05:49] LABS: Basophils # 0.1 K/mcL (0.0-0.2); Basophils % 0.5 %; Eosinophils # 1.2 K/mcL (0.0-0.6); Hematocrit 27.6 % (37.5-50.1); Hemoglobin 8.3 g/dL (12.9-16.9); Immature Granulocytes % 1.8 % (0-4); Lymphocytes # 3.5 K/mcL (0.6-4.6); Lymphocytes % 20.5 %; Mean Corpuscular HGB Conc 30.1 g/dL (31.6-35.5); Mean Corpuscular Hemoglobin 28.1 pg (28.0-33.3); Mean Corpuscular Volume 93.6 fL (83.0-100.0); Monocytes # 1.3 K/mcL (0.0-1.3); Monocytes % 7.4 %; Neutrophils # 10.6 K/mcL (1.6-8.9); Platelet Count 553 K/mcL (140-400); Red Blood Count 2.95 M/mcL (4.19-5.50); Red Cell Distribution Width 16.6 % (11.5-14.5); Segmented Neutrophils % 62.8 %; White Blood Count 16.8 K/mcL (4.3-11.1)
[2020-07-09 05:58] LABS: BUN/Creatinine Ratio 10 (6-26); Blood Urea Nitrogen 10 mg/dL (8-23); Calcium 7.6 mg/dL (8.6-10.3); Carbon Dioxide 23 mEq/L (23-29); Chloride 108 mEq/L (98-107); Glucose 104 mg/dL (70-105); Osmolality,Calculated 279 (280-300); Potassium 3.7 mEq/L (3.5-5.1); Sodium 135 mEq/L (136-145); eGFR For African Americans > 60 (> 60); eGFR For Non-African Americans > 60 (> 60)
[2020-07-09] MEDS: Finasteride 5 MG TABLET PO SCH (09:00)
[2020-07-09] MEDS: Lactobacillus 1 EACH CAP.SPRINK PO SCH ×2 (09:00→20:41)
[2020-07-09] MEDS: Metoprolol XL (24 HR) Succ 25 MG TAB.ER.24H PO SCH (09:00)
[2020-07-09] MEDS: MetroNIDAZOLE 500 MG/100 ML 500 MG/100 ML BAG IVPB SCH ×2 (09:01→17:01)
[2020-07-09] MEDS: Vancomycin Oral Soln 125 MG/2.5 ML UDC PO SCH ×4 (09:03→20:43)
[2020-07-09] MEDS: Nystatin POWDER 30 GM BOTTLE TP SCH ×2 (09:36→20:45)
[2020-07-09] MEDS: *HR* OxyCODONE Immed Rel 5 MG TABLET PO SCH (19:51)
[2020-07-10] MEDS: MetroNIDAZOLE 500 MG/100 ML 500 MG/100 ML BAG IVPB SCH ×3 (00:53→17:52)
[2020-07-10 01:26] LABS: Alanine Aminotransferase 9 Units/L (7-52); Albumin 2.6 g/dL (3.5-5.7); Alkaline Phosphatase 62 Units/L (34-104); Aspartate Amino Transferase 15 Units/L (13-39); BUN/Creatinine Ratio 9 (6-26); Bilirubin,Total 0.2 mg/dL (0.3-1.0); Blood Urea Nitrogen 9 mg/dL (8-23); Calcium 7.6 mg/dL (8.6-10.3); Carbon Dioxide 23 mEq/L (23-29); Chloride 106 mEq/L (98-107); Globulin 2.7 g/dL (2.4-3.5); Glucose 124 mg/dL (70-105); Osmolality,Calculated 278 (280-300); Potassium 4.1 mEq/L (3.5-5.1); Sodium 134 mEq/L (136-145); Total Protein 5.3 g/dL (6.4-8.9); eGFR For African Americans > 60 (> 60); eGFR For Non-African Americans > 60 (> 60)
[2020-07-10] MEDS: *HR* OxyCODONE Immed Rel 15 MG TABLET PO SCH ×7 (02:03→22:08)
[2020-07-10] MEDS: Pantoprazole 40 MG VIAL IVP SCH ×2 (06:13→17:53)
[2020-07-10] MEDS: 0.9 % Sodium Chloride 1,000 ML IVC SCH (06:17)
[2020-07-10 06:43] LABS: Hematocrit 27.3 % (37.5-50.1); Hemoglobin 8.2 g/dL (12.9-16.9); Mean Corpuscular Hemoglobin 28.7 pg (28.0-33.3); Mean Corpuscular Volume 95.5 fL (83.0-100.0); Mean Platelet Volume 9.6 fL (9.4-12.4); Neutrophils # 9.7 K/mcL (1.6-8.9); Platelet Count 557 K/mcL (140-400); Red Blood Count 2.86 M/mcL (4.19-5.50); Red Cell Distribution Width 16.9 % (11.5-14.5); Segmented Neutrophils % 61.9 %; White Blood Count 15.7 K/mcL (4.3-11.1)
[2020-07-10 06:44] LABS: Basophils # 0.1 K/mcL (0.0-0.2); Basophils % 0.5 %; Eosinophils # 1.1 K/mcL (0.0-0.6); Eosinophils % 6.9 %; Immature Granulocytes % 1.4 % (0-4); Lymphocytes # 3.4 K/mcL (0.6-4.6); Lymphocytes % 21.9 %; Monocytes # 1.2 K/mcL (0.0-1.3); Monocytes % 7.4 %
[2020-07-10] MEDS: Vancomycin Oral Soln 125 MG/2.5 ML UDC PO SCH ×4 (09:18→22:43)
[2020-07-10] MEDS: Lactobacillus 1 EACH CAP.SPRINK PO SCH ×2 (09:18→19:31)
[2020-07-10] MEDS: Nystatin POWDER 30 GM BOTTLE TP SCH ×2 (09:21→22:12)
[2020-07-10] MEDS: Finasteride 5 MG TABLET PO SCH (09:21)
[2020-07-10] MEDS: Metoprolol XL (24 HR) Succ 25 MG TAB.ER.24H PO SCH (09:21)
[2020-07-11] MEDS: MetroNIDAZOLE 500 MG/100 ML 500 MG/100 ML BAG IVPB SCH ×2 (00:07→10:26)
[2020-07-11] MEDS: *HR* OxyCODONE Immed Rel 15 MG TABLET PO SCH ×7 (02:05→22:00)
[2020-07-11] MEDS: Pantoprazole 40 MG VIAL IVP SCH ×2 (05:33→16:22)
[2020-07-11 06:12] LABS: Basophils # 0.1 K/mcL (0.0-0.2); Basophils % 0.6 %; Eosinophils # 1.1 K/mcL (0.0-0.6); Eosinophils % 7.8 %; Hematocrit 26.7 % (37.5-50.1); Immature Granulocytes % 2.1 % (0-4); Lymphocytes # 4.2 K/mcL (0.6-4.6); Mean Corpuscular Hemoglobin 27.5 pg (28.0-33.3); Mean Corpuscular Volume 91.8 fL (83.0-100.0); Mean Platelet Volume 9.1 fL (9.4-12.4); Monocytes # 1.6 K/mcL (0.0-1.3); Monocytes % 11.5 %; Neutrophils # 6.4 K/mcL (1.6-8.9); Nucleated Red Blood Cells 0.7 /100 WBC (0); Platelet Count 560 K/mcL (140-400); Red Blood Count 2.91 M/mcL (4.19-5.50); Red Cell Distribution Width 16.9 % (11.5-14.5); White Blood Count 13.7 K/mcL (4.3-11.1)
[2020-07-11 06:34] LABS: BUN/Creatinine Ratio 8 (6-26); Blood Urea Nitrogen 8 mg/dL (8-23); Calcium 8.2 mg/dL (8.6-10.3); Carbon Dioxide 26 mEq/L (23-29); Chloride 108 mEq/L (98-107); Glucose 132 mg/dL (70-105); Osmolality,Calculated 288 (280-300); Potassium 4.6 mEq/L (3.5-5.1); Sodium 139 mEq/L (136-145); eGFR For African Americans > 60 (> 60); eGFR For Non-African Americans > 60 (> 60)
[2020-07-11] MEDS: Vancomycin Oral Soln 125 MG/2.5 ML UDC PO SCH ×4 (10:26→20:55)
[2020-07-11] MEDS: Lactobacillus 1 EACH CAP.SPRINK PO SCH ×2 (10:27→20:55)
[2020-07-11] MEDS: Metoprolol XL (24 HR) Succ 25 MG TAB.ER.24H PO SCH (10:27)
[2020-07-11] MEDS: Nystatin POWDER 30 GM BOTTLE TP SCH ×2 (10:27→21:46)
[2020-07-11] MEDS: Finasteride 5 MG TABLET PO SCH (10:27)
[2020-07-11] MEDS: *HR* HYDROmorphone 2 MG/ML SYRINGE IVP PRN (16:21)
[2020-07-12] MEDS: *HR* OxyCODONE Immed Rel 15 MG TABLET PO SCH ×3 (01:59→10:39)
[2020-07-12] MEDS: Pantoprazole 40 MG VIAL IVP SCH (05:45)
[2020-07-12 07:58] VITALS: BP 123/70
[2020-07-12] MEDS: Vancomycin Oral Soln 125 MG/2.5 ML UDC PO SCH (10:40)
[2020-07-12] MEDS: Lactobacillus 1 EACH CAP.SPRINK PO SCH (10:40)
[2020-07-12] MEDS: Metoprolol XL (24 HR) Succ 25 MG TAB.ER.24H PO SCH (10:40)
[2020-07-12] MEDS: Nystatin POWDER 30 GM BOTTLE TP SCH (10:40)
[2020-07-12] MEDS: Finasteride 5 MG TABLET PO SCH (10:40)
== END 2020-07-12 13:10 | disposition home or self-care (01) | DRG 872 ==
LOC: EMEROOARM 14:26 → ICNU 14:26 → SUATTDRO 18:20 → ICNU 20:40 → 2NNU 07-07 21:09 → 3ANU 07-10 16:51
PROVIDERS: ADMIT Pharmacist; ATTEND Internal Medicine

== ENCOUNTER 2020-08-03 08:04 | Inpatient (IN) ==
[2020-08-03] MEDS ORDERED: CeFAZolin Syr 2,000MG/20 ML 2,000 MG/20 ML SYRINGE IVPB ONE (08:27)
[2020-08-03] MEDS: Ringers Solution, Lactated 1,000 ML IVC SCH ×2 (09:15→18:00)
[2020-08-03] MEDS ORDERED: *HR* HYDROmorphone 2 MG TABLET PO PRN (09:17)
[2020-08-03] MEDS ORDERED: *HR* OxyCODONE Immed Rel 5 MG TABLET PO PRN (09:17)
[2020-08-03] MEDS ORDERED: Promethazine 6.25 MG in Water for inj. (sterile) 20 ML IVPB PRN (09:17)
[2020-08-03] MEDS ORDERED: *HR* Labetalol 20 MG/4 ML SYRINGE IVP PRN (09:17)
[2020-08-03] MEDS ORDERED: Famotidine 20 MG/2 ML VIAL IVP ONE (09:17)
[2020-08-03] MEDS ORDERED: *HR* HYDROmorphone PF 0.5 MG/0.5 ML SYRINGE IVP PRN (09:17)
[2020-08-03] MEDS ORDERED: Acetaminophen IV 1,000 MG/100 ML INFUS..BTL IVPB ONE (09:17)
[2020-08-03] MEDS ORDERED: Lidocaine -MPF 2% 2 ML VIAL ONE (09:30)
[2020-08-03] MEDS ORDERED: *HR* Propofol 200 MG/20 ML VIAL IVP ONE (09:30)
[2020-08-03] MEDS ORDERED: Dexamethasone 4 MG/ML VIAL ONE (09:31)
[2020-08-03] MEDS ORDERED: Ondansetron 4 MG/2 ML VIAL ONE (09:31)
[2020-08-03] MEDS ORDERED: *HR* FentaNYL (PF) 100 MCG/2 ML VIAL ONE ×2 (09:42→11:29)
[2020-08-03] MEDS ORDERED: *HR* Midazolam HCl 2 MG/2 ML VIAL ONE ×2 (10:32→10:54)
[2020-08-03] MEDS ORDERED: Lacri-Lube 3.5 GM TUBE ONE (10:37)
[2020-08-03] MEDS ORDERED: Heparin 1,000 UNITS/500 mL 500 ML ONE (10:39)
[2020-08-03] MEDS ORDERED: *HR* PHENYLEPHRINE 1,000 MCG/10 ML SYRINGE IVP ONE (11:04)
[2020-08-03] MEDS ORDERED: EPINEPHrine 1 MG/ML VIAL ONE (11:12)
[2020-08-03] MEDS ORDERED: flumazeniL 0.5 MG/5 ML VIAL IVP ONE (11:17)
[2020-08-03 11:21] LABS: Basophils # 0.1 K/mcL (0.0-0.2); Basophils % 0.2 %; Eosinophils # 0.2 K/mcL (0.0-0.6); Eosinophils % 0.8 %; Hematocrit 27.7 % (37.5-50.1); Hemoglobin 8.5 g/dL (12.9-16.9); Immature Granulocytes % 1.1 % (0-4); Lymphocytes % 23.1 %; Mean Corpuscular HGB Conc 30.7 g/dL (31.6-35.5); Mean Corpuscular Hemoglobin 25.8 pg (28.0-33.3); Monocytes # 1.4 K/mcL (0.0-1.3); Monocytes % 6.6 %; Neutrophils # 14.6 K/mcL (1.6-8.9); Nucleated Red Blood Cells 0.1 /100 WBC (0); Platelet Count 380 K/mcL (140-400); Red Cell Distribution Width 15.8 % (11.5-14.5); Segmented Neutrophils % 68.2 %; White Blood Count 21.4 K/mcL (4.3-11.1)
[2020-08-03 11:25] LABS: VBG Ionized Calcium 1.13 mmol/L (1.15-1.35)
[2020-08-03 11:27] LABS: Mean Corpuscular Volume 83.9 fL (83.0-100.0)
[2020-08-03 11:28] LABS: INR 1.2; Prothrombin Time 13.8 Seconds (9.4-12.1)
[2020-08-03 11:31] LABS: Activated Partial Thrombo Time 26.9 Seconds (26.0-36.0)
[2020-08-03 11:32] LABS: ABG Base Excess -5 mEq/L (-2 to 3); ABG Chloride 105 mEq/L (98-107); ABG Glucose 121 mg/dL (60-95); ABG HCO3 21 mEq/L (21-27); ABG Ionized Calcium 1.23 mmol/L (1.15-1.35); ABG Oxygen Saturation 100 % (95-98); ABG PCO2 43 mmHg (35-45); ABG PO2 238 mmHg (85-104); ABG TCO2 22 mEq/L (20-26)
[2020-08-03 11:43] LABS: Alanine Aminotransferase 28 Units/L (7-52); Albumin 3.6 g/dL (3.5-5.7); Albumin/Globulin Ratio 1.2 (1.1-2.2); Alkaline Phosphatase 102 Units/L (34-104); Aspartate Amino Transferase 31 Units/L (13-39); BUN/Creatinine Ratio 15 (6-26); Bilirubin,Total 0.3 mg/dL (0.3-1.0); Blood Urea Nitrogen 19 mg/dL (8-23); Calcium 8.3 mg/dL (8.6-10.3); Carbon Dioxide 19 mEq/L (23-29); Chloride 106 mEq/L (98-107); Glucose 115 mg/dL (70-105); Osmolality,Calculated 283 (280-300); Potassium 4.3 mEq/L (3.5-5.1); Sodium 135 mEq/L (136-145); Total Protein 6.6 g/dL (6.4-8.9); eGFR For African Americans > 60 (> 60); eGFR For Non-African Americans 56 (> 60)
[2020-08-03] MEDS ORDERED: Perflutren Lipid Microsphere 1.3 ML in 0.9 % Sodium Chloride 8.7 ML IVP PRN ×2 (11:58→15:40)
[2020-08-03] MEDS ORDERED: Naloxone 0.4 MG/ML INJ IVP PRN (12:45)
[2020-08-03 13:59] LABS: ABG Base Excess -3 mEq/L (-2 to 3); ABG HCO3 22 mEq/L (21-27); ABG Oxygen Saturation 97 % (95-98); ABG PCO2 38 mmHg (35-45); ABG PH 7.36 pH Units (7.32-7.45); ABG PO2 92 mmHg (85-104); ABG TCO2 23 mEq/L (20-26)
[2020-08-03 14:22] LABS: Magnesium 1.8 mg/dL (1.6-2.6); Troponin I < 0.03 ng/mL (< 0.04)
[2020-08-03] MEDS ORDERED: *HR* OxyCODONE Immed Rel 15 MG TABLET PO PRN (15:06)
[2020-08-03] MEDS: *HR* HYDROmorphone (PF) 1 MG/ML SYRINGE IVP PRN ×3 (18:19→22:46)
[2020-08-03] MEDS ORDERED: Magnesium Sulfate 1 GM/102 ML PIGGYBACK IVPB ONE (18:24)
[2020-08-03] MEDS: *HR* OxyCODONE Immed Rel 15 MG TABLET PO PRN (23:46)
[2020-08-04] MEDS: *HR* HYDROmorphone (PF) 1 MG/ML SYRINGE IVP PRN ×5 (03:53→22:20)
[2020-08-04 04:40] LABS: Basophils % 0.1 %; Hematocrit 29.9 % (37.5-50.1); Immature Granulocytes % 0.5 % (0-4); Lymphocytes # 3.5 K/mcL (0.6-4.6); Lymphocytes % 20.8 %; Mean Corpuscular HGB Conc 30.1 g/dL (31.6-35.5); Mean Corpuscular Hemoglobin 25.8 pg (28.0-33.3); Mean Corpuscular Volume 85.7 fL (83.0-100.0); Mean Platelet Volume 9.6 fL (9.4-12.4); Monocytes # 0.9 K/mcL (0.0-1.3); Monocytes % 5.6 %; Neutrophils # 12.2 K/mcL (1.6-8.9); Platelet Count 416 K/mcL (140-400); Red Blood Count 3.49 M/mcL (4.19-5.50); Red Cell Distribution Width 15.9 % (11.5-14.5); White Blood Count 16.7 K/mcL (4.3-11.1)
[2020-08-04 04:46] LABS: BUN/Creatinine Ratio 19 (6-26); Blood Urea Nitrogen 19 mg/dL (8-23); Calcium 8.8 mg/dL (8.6-10.3); Carbon Dioxide 20 mEq/L (23-29); Chloride 107 mEq/L (98-107); Glucose 120 mg/dL (70-105); Magnesium 2.2 mg/dL (1.6-2.6); Osmolality,Calculated 283 (280-300); Potassium 4.5 mEq/L (3.5-5.1); Sodium 135 mEq/L (136-145); eGFR For African Americans > 60 (> 60); eGFR For Non-African Americans > 60 (> 60)
[2020-08-04] MEDS: *HR* OxyCODONE Immed Rel 15 MG TABLET PO PRN (05:55)
[2020-08-04] MEDS ORDERED: *HR* Enoxaparin 40 MG/0.4 ML SYRINGE SQ SCH (06:00)
[2020-08-04] MEDS ORDERED: *HR* OxyCODONE Immed Rel 15 MG TABLET PO PRN ×3 (08:53→12:12)
[2020-08-04] MEDS ORDERED: Finasteride 5 MG TABLET PO SCH (09:00)
[2020-08-04] MEDS ORDERED: *HR* HYDROmorphone (PF) 1 MG/ML SYRINGE IVP PRN (09:51)
[2020-08-04] MEDS ORDERED: Naloxone 0.4 MG/ML INJ IVP PRN (09:51)
[2020-08-04] MEDS ORDERED: *HR* Labetalol 20 MG/4 ML SYRINGE IVP PRN (09:51)
[2020-08-04] MEDS: *HR* OxyCODONE Immed Rel 15 MG TABLET PO SCH ×3 (12:53→20:24)
[2020-08-04] MEDS ORDERED: amLODIPine 5 MG TABLET PO SCH ×2 (18:00)
[2020-08-05] MEDS: *HR* OxyCODONE Immed Rel 15 MG TABLET PO SCH ×6 (00:16→20:14)
[2020-08-05] MEDS: *HR* HYDROmorphone (PF) 1 MG/ML SYRINGE IVP PRN ×3 (01:43→17:27)
[2020-08-05] MEDS: *HR* Enoxaparin 40 MG/0.4 ML SYRINGE SQ SCH (05:03)
[2020-08-05 05:57] LABS: Basophils # 0.1 K/mcL (0.0-0.2); Basophils % 0.3 %; Eosinophils # 0.2 K/mcL (0.0-0.6); Eosinophils % 0.9 %; Hematocrit 28.6 % (37.5-50.1); Hemoglobin 8.6 g/dL (12.9-16.9); Immature Granulocytes % 0.5 % (0-4); Lymphocytes # 5.6 K/mcL (0.6-4.6); Lymphocytes % 23.9 %; Mean Corpuscular HGB Conc 30.1 g/dL (31.6-35.5); Mean Corpuscular Hemoglobin 25.9 pg (28.0-33.3); Mean Corpuscular Volume 86.1 fL (83.0-100.0); Mean Platelet Volume 9.1 fL (9.4-12.4); Monocytes # 2.4 K/mcL (0.0-1.3); Monocytes % 10.1 %; Neutrophils # 15.1 K/mcL (1.6-8.9); Nucleated Red Blood Cells 0.1 /100 WBC (0); Platelet Count 376 K/mcL (140-400); Red Blood Count 3.32 M/mcL (4.19-5.50); Red Cell Distribution Width 16.1 % (11.5-14.5); Segmented Neutrophils % 64.3 %; White Blood Count 23.4 K/mcL (4.3-11.1)
[2020-08-05 06:14] LABS: BUN/Creatinine Ratio 15 (6-26); Blood Urea Nitrogen 17 mg/dL (8-23); Calcium 8.4 mg/dL (8.6-10.3); Carbon Dioxide 22 mEq/L (23-29); Chloride 103 mEq/L (98-107); Glucose 105 mg/dL (70-105); Osmolality,Calculated 278 (280-300); Potassium 3.7 mEq/L (3.5-5.1); Sodium 133 mEq/L (136-145); eGFR For African Americans > 60 (> 60); eGFR For Non-African Americans > 60 (> 60)
[2020-08-05 06:44] LABS: Anisocytosis 1+ (Not Present); Hypochromasia Present (Not Present)
[2020-08-05 06:45] LABS: Platelet Estimate Normal (Normal); Poikilocytosis 1+ (Not Present)
[2020-08-05] MEDS: Finasteride 5 MG TABLET PO SCH (08:06)
[2020-08-05] MEDS: Ringers Solution, Lactated 1,000 ML IVC SCH ×4 (08:07→22:32)
[2020-08-05] MEDS ORDERED: 0.9 % Sodium Chloride 1,000 ML IVC ONE (09:36)
[2020-08-05 10:04] LABS: Adenovirus Not Detected (Not Detect); Bordetella Pertussis Not Detected (Not Detect); Chlamydophila pneumoniae Not Detected (Not Detect); Coronavirus 229E Not Detected (Not Detect); Coronavirus HKU1 Not Detected (Not Detect); Coronavirus NL63 Not Detected (Not Detect); Coronavirus OC43 Not Detected (Not Detect); Human Metapneumovirus Not Detected (Not Detect); Human Rhinovirus/Enterovirus Not Detected (Not Detect); Influenza A Subtype 2009 H1 Not Detected (Not Detect); Influenza B Not Detected (Not Detect); Mycoplasma pneumoniae Not Detected (Not Detect); Parainfluenza Virus 1 Not Detected (Not Detect); Parainfluenza Virus 2 Not Detected (Not Detect); Parainfluenza Virus 3 Not Detected (Not Detect); Parainfluenza Virus 4 Not Detected (Not Detect); Respiratory Syncytial Virus Not Detected (Not Detect); SARS-CoV-2 Not Detected (Not Detect)
[2020-08-05] MEDS: cefTRIAXone 2,000 MG in Water for inj. (sterile) 20 ML IVP SCH (11:28)
[2020-08-05] MEDS ORDERED: Acetaminophen IV 500 MG/50 ML INFUS..BTL IVPB ONE (12:28)
[2020-08-05 17:09] LABS: Bilirubin,Urine Negative (Negative); Blood,Urine Trace (Negative); Clarity,Urine Clear (Clear); Color,Urine Light-Yellow (Yellow); Glucose,Urine (UA) Normal (Normal); Ketones,Urine Negative (Negative); Leukocyte Esterase,Urine Negative (Negative); Nitrite,Urine Negative (Negative); Protein,Urine Trace mg/dL (Neg-Trace); Specific Gravity,Urine 1.017 (1.010-1.025); Urobilinogen,Urine Normal (Normal); WBC,Urine 0-3 per hpf (0-3)
[2020-08-05] MEDS ORDERED: Acetaminophen 325 MG TABLET PO PRN (19:50)
[2020-08-05] MEDS ORDERED: Ondansetron 4 MG/2 ML VIAL IVP ONE (20:27)
[2020-08-05] MEDS: Famotidine 20 MG TABLET PO SCH (21:08)
[2020-08-05] MEDS ORDERED: *HR* Metoprolol 5 MG/5 ML VIAL IVP PRN (23:44)
[2020-08-06] MEDS: *HR* OxyCODONE Immed Rel 15 MG TABLET PO SCH ×7 (00:03→23:57)
[2020-08-06] MEDS ORDERED: Prochlorperazine 10 MG/2 ML VIAL IVP PRN ×2 (00:10→13:51)
[2020-08-06] MEDS: *HR* Metoprolol 5 MG/5 ML VIAL IVP PRN ×2 (00:12→09:23)
[2020-08-06] MEDS: *HR* Enoxaparin 40 MG/0.4 ML SYRINGE SQ SCH (04:05)
[2020-08-06 05:34] LABS: Basophils % 0.2 %; Eosinophils % 0.1 %; Hemoglobin 9.2 g/dL (12.9-16.9)
[2020-08-06 05:35] LABS: Basophils # 0.1 K/mcL (0.0-0.2); Hematocrit 30.5 % (37.5-50.1); Immature Granulocytes % 1.5 % (0-4); Lymphocytes # 4.8 K/mcL (0.6-4.6); Mean Corpuscular HGB Conc 30.2 g/dL (31.6-35.5); Mean Corpuscular Hemoglobin 26.1 pg (28.0-33.3); Mean Corpuscular Volume 86.4 fL (83.0-100.0); Mean Platelet Volume 9.6 fL (9.4-12.4); Monocytes # 2.3 K/mcL (0.0-1.3); Monocytes % 5.9 %; Neutrophils # 31.9 K/mcL (1.6-8.9); Nucleated Red Blood Cells 0.2 /100 WBC (0); Platelet Count 369 K/mcL (140-400); Red Blood Count 3.53 M/mcL (4.19-5.50); Red Cell Distribution Width 16.2 % (11.5-14.5); Segmented Neutrophils % 80.3 %
[2020-08-06 05:42] LABS: White Blood Count 39.7 K/mcL (4.3-11.1)
[2020-08-06 05:48] LABS: BUN/Creatinine Ratio 9 (6-26); Blood Urea Nitrogen 11 mg/dL (8-23); Calcium 8.2 mg/dL (8.6-10.3); Carbon Dioxide 20 mEq/L (23-29); Chloride 103 mEq/L (98-107); Glucose 144 mg/dL (70-105); Osmolality,Calculated 276 (280-300); Potassium 3.4 mEq/L (3.5-5.1); Sodium 132 mEq/L (136-145); eGFR For African Americans > 60 (> 60); eGFR For Non-African Americans > 60 (> 60)
[2020-08-06 06:42] LABS: Anisocytosis 1+ (Not Present); Hypochromasia Present (Not Present)
[2020-08-06 06:43] LABS: Acanthocytes 1+ (Not Present); Platelet Estimate Normal (Normal); Poikilocytosis 1+ (Not Present); Reactive Lymphocytes Present (Not Present)
[2020-08-06] MEDS ORDERED: Regadenoson 0.4 MG/5 ML SYRINGE IVP ONE (07:05)
[2020-08-06] MEDS: Famotidine 20 MG TABLET PO SCH ×2 (08:11→19:47)
[2020-08-06] MEDS: Finasteride 5 MG TABLET PO SCH (08:11)
[2020-08-06] MEDS ORDERED: Isovue-300 50ML VIAL ONE (10:19)
[2020-08-06] MEDS ORDERED: *HR* Propofol 200 MG/20 ML VIAL IVP ONE (10:58)
[2020-08-06] MEDS ORDERED: *HR* FentaNYL (PF) 100 MCG/2 ML VIAL ONE ×2 (10:58→12:22)
[2020-08-06] MEDS ORDERED: *HR* Etomidate 40 MG/20 ML VIAL IVP ONE (10:59)
[2020-08-06] MEDS ORDERED: Dexamethasone 4 MG/ML VIAL ONE (11:01)
[2020-08-06] MEDS ORDERED: Ondansetron 4 MG/2 ML VIAL ONE (11:01)
[2020-08-06] MEDS ORDERED: EPHEDrine 50 MG/ML VIAL ONE (11:15)
[2020-08-06] MEDS: cefTRIAXone 2,000 MG in Water for inj. (sterile) 20 ML IVP SCH (12:08)
[2020-08-06] MEDS ORDERED: *HR* PHENYLEPHRINE 1,000 MCG/10 ML SYRINGE IVP ONE (12:25)
[2020-08-06] MEDS ORDERED: Ondansetron 4 MG/2 ML VIAL IVP PRN (12:32)
[2020-08-06] MEDS ORDERED: Morphine Sulfate 2 MG/ML SYRINGE IVP PRN (12:32)
[2020-08-06] MEDS ORDERED: Acetaminophen IV 1,000 MG/100 ML INFUS..BTL ONE (12:33)
[2020-08-06] MEDS: Ringers Solution, Lactated 1,000 ML IVC SCH ×3 (13:51→19:30)
[2020-08-06] MEDS ORDERED: Naloxone 0.4 MG/ML INJ IVP PRN (13:51)
[2020-08-06] MEDS ORDERED: *HR* OxyCODONE Immed Rel 15 MG TABLET PO PRN (13:51)
[2020-08-06] MEDS ORDERED: Acetaminophen 325 MG TABLET PO PRN (13:51)
[2020-08-06] MEDS ORDERED: *HR* Metoprolol 5 MG/5 ML VIAL IVP PRN (13:51)
[2020-08-06] MEDS ORDERED: Sod Borate/Boric acid/NaCl 118 ML IRRIG.SOLN OP ONE (14:01)
[2020-08-06] MEDS: Vancomycin Oral Soln 125 MG/2.5 ML UDC PO SCH (23:20)
[2020-08-06] MEDS: MetroNIDAZOLE 500 MG/100 ML 500 MG/100 ML BAG IVPB SCH (23:51)
[2020-08-07] MEDS ORDERED: amLODIPine 5 MG TABLET PO SCH (04:35)
[2020-08-07] MEDS: *HR* Enoxaparin 40 MG/0.4 ML SYRINGE SQ SCH (04:38)
[2020-08-07] MEDS: *HR* OxyCODONE Immed Rel 15 MG TABLET PO SCH ×6 (04:38→23:46)
[2020-08-07] MEDS: Ringers Solution, Lactated 1,000 ML IVC SCH ×2 (04:38→17:11)
[2020-08-07 04:59] LABS: Basophils % 0.2 %
[2020-08-07 05:00] LABS: Basophils # 0.1 K/mcL (0.0-0.2); Hematocrit 31.4 % (37.5-50.1); Hemoglobin 9.3 g/dL (12.9-16.9); Lymphocytes # 3.4 K/mcL (0.6-4.6); Lymphocytes % 9.9 %; Mean Corpuscular HGB Conc 29.6 g/dL (31.6-35.5); Mean Corpuscular Hemoglobin 25.5 pg (28.0-33.3); Mean Platelet Volume 9.8 fL (9.4-12.4); Monocytes # 1.7 K/mcL (0.0-1.3); Monocytes % 4.9 %; Nucleated Red Blood Cells 0.1 /100 WBC (0); Platelet Count 394 K/mcL (140-400); Red Blood Count 3.65 M/mcL (4.19-5.50); Red Cell Distribution Width 16.2 % (11.5-14.5)
[2020-08-07 05:12] LABS: White Blood Count 34.5 K/mcL (4.3-11.1)
[2020-08-07 05:15] LABS: BUN/Creatinine Ratio 12 (6-26); Blood Urea Nitrogen 13 mg/dL (8-23); Calcium 8.7 mg/dL (8.6-10.3); Carbon Dioxide 23 mEq/L (23-29); Chloride 103 mEq/L (98-107); Glucose 120 mg/dL (70-105); Osmolality,Calculated 279 (280-300); Potassium 3.8 mEq/L (3.5-5.1); Sodium 134 mEq/L (136-145); eGFR For African Americans > 60 (> 60); eGFR For Non-African Americans > 60 (> 60)
[2020-08-07 06:12] LABS: Hypochromasia Present (Not Present); Platelet Estimate Normal (Normal); Reactive Lymphocytes Present (Not Present)
[2020-08-07] MEDS: Finasteride 5 MG TABLET PO SCH (08:50)
[2020-08-07] MEDS: Famotidine 20 MG TABLET PO SCH ×2 (08:50→21:19)
[2020-08-07] MEDS: Vancomycin Oral Soln 125 MG/2.5 ML UDC PO SCH ×4 (08:50→21:19)
[2020-08-07] MEDS: MetroNIDAZOLE 500 MG/100 ML 500 MG/100 ML BAG IVPB SCH ×3 (08:51→23:40)
[2020-08-07] MEDS ORDERED: cefTRIAXone 2,000 MG in Water for inj. (sterile) 20 ML IVP SCH (11:00)
[2020-08-08] MEDS: *HR* Enoxaparin 40 MG/0.4 ML SYRINGE SQ SCH (04:25)
[2020-08-08] MEDS: *HR* OxyCODONE Immed Rel 15 MG TABLET PO SCH ×6 (04:25→23:51)
[2020-08-08] MEDS: Ringers Solution, Lactated 1,000 ML IVC SCH ×2 (06:53→20:38)
[2020-08-08] MEDS: Vancomycin Oral Soln 125 MG/2.5 ML UDC PO SCH ×4 (07:41→20:03)
[2020-08-08] MEDS: MetroNIDAZOLE 500 MG/100 ML 500 MG/100 ML BAG IVPB SCH ×3 (07:42→23:53)
[2020-08-08] MEDS: Finasteride 5 MG TABLET PO SCH (07:42)
[2020-08-08] MEDS: Famotidine 20 MG TABLET PO SCH ×2 (07:42→20:03)
[2020-08-08 08:33] LABS: Basophils # 0.1 K/mcL (0.0-0.2); Basophils % 0.4 %; Eosinophils # 0.6 K/mcL (0.0-0.6); Eosinophils % 3.5 %; Hematocrit 29.4 % (37.5-50.1); Hemoglobin 8.9 g/dL (12.9-16.9); Immature Granulocytes % 1.1 % (0-4); Lymphocytes # 5.8 K/mcL (0.6-4.6); Lymphocytes % 32.6 %; Mean Corpuscular HGB Conc 30.3 g/dL (31.6-35.5); Mean Corpuscular Hemoglobin 25.8 pg (28.0-33.3); Mean Corpuscular Volume 85.2 fL (83.0-100.0); Mean Platelet Volume 9.4 fL (9.4-12.4); Monocytes # 1.5 K/mcL (0.0-1.3); Monocytes % 8.2 %; Neutrophils # 9.6 K/mcL (1.6-8.9); Platelet Count 441 K/mcL (140-400); Red Blood Count 3.45 M/mcL (4.19-5.50); Red Cell Distribution Width 16.2 % (11.5-14.5); Segmented Neutrophils % 54.2 %; White Blood Count 17.7 K/mcL (4.3-11.1)
[2020-08-08 08:52] LABS: BUN/Creatinine Ratio 9 (6-26); Blood Urea Nitrogen 9 mg/dL (8-23); Calcium 8.1 mg/dL (8.6-10.3); Carbon Dioxide 27 mEq/L (23-29); Chloride 103 mEq/L (98-107); Glucose 95 mg/dL (70-105); Osmolality,Calculated 278 (280-300); Potassium 3.2 mEq/L (3.5-5.1); Sodium 135 mEq/L (136-145); eGFR For African Americans > 60 (> 60); eGFR For Non-African Americans > 60 (> 60)
[2020-08-09 03:51] LABS: Basophils # 0.1 K/mcL (0.0-0.2); Basophils % 0.5 %; Eosinophils # 0.7 K/mcL (0.0-0.6); Eosinophils % 4.9 %; Hematocrit 28.6 % (37.5-50.1); Hemoglobin 8.7 g/dL (12.9-16.9); Immature Granulocytes % 1.6 % (0-4); Lymphocytes # 5.6 K/mcL (0.6-4.6); Lymphocytes % 38.2 %; Mean Corpuscular HGB Conc 30.4 g/dL (31.6-35.5); Mean Corpuscular Hemoglobin 25.7 pg (28.0-33.3); Mean Corpuscular Volume 84.6 fL (83.0-100.0); Mean Platelet Volume 9.8 fL (9.4-12.4); Monocytes # 1.6 K/mcL (0.0-1.3); Monocytes % 10.9 %; Neutrophils # 6.5 K/mcL (1.6-8.9); Nucleated Red Blood Cells 1.4 /100 WBC (0); Platelet Count 458 K/mcL (140-400); Red Blood Count 3.38 M/mcL (4.19-5.50); Red Cell Distribution Width 16.5 % (11.5-14.5); Segmented Neutrophils % 43.9 %; White Blood Count 14.8 K/mcL (4.3-11.1)
[2020-08-09] MEDS: *HR* OxyCODONE Immed Rel 15 MG TABLET PO SCH ×6 (04:05→23:37)
[2020-08-09] MEDS: *HR* Enoxaparin 40 MG/0.4 ML SYRINGE SQ SCH (04:06)
[2020-08-09 04:07] LABS: BUN/Creatinine Ratio 8 (6-26); Blood Urea Nitrogen 8 mg/dL (8-23); Calcium 8.2 mg/dL (8.6-10.3); Carbon Dioxide 29 mEq/L (23-29); Chloride 102 mEq/L (98-107); Glucose 101 mg/dL (70-105); Osmolality,Calculated 282 (280-300); Potassium 3.3 mEq/L (3.5-5.1); Sodium 137 mEq/L (136-145); eGFR For African Americans > 60 (> 60); eGFR For Non-African Americans > 60 (> 60)
[2020-08-09] MEDS: Vancomycin Oral Soln 125 MG/2.5 ML UDC PO SCH ×4 (09:24→19:57)
[2020-08-09] MEDS: Famotidine 20 MG TABLET PO SCH ×2 (09:25→19:57)
[2020-08-09] MEDS: Finasteride 5 MG TABLET PO SCH (09:25)
[2020-08-09] MEDS: Ringers Solution, Lactated 1,000 ML IVC SCH (09:26)
[2020-08-09] MEDS: MetroNIDAZOLE 500 MG/100 ML 500 MG/100 ML BAG IVPB SCH ×3 (09:30→23:40)
[2020-08-09 10:19] LABS: Magnesium 1.6 mg/dL (1.6-2.6)
[2020-08-10] MEDS: *HR* OxyCODONE Immed Rel 15 MG TABLET PO SCH ×5 (03:45→21:17)
[2020-08-10] MEDS: *HR* Enoxaparin 40 MG/0.4 ML SYRINGE SQ SCH (03:46)
[2020-08-10 06:22] LABS: Basophils # 0.1 K/mcL (0.0-0.2); Basophils % 0.8 %; Eosinophils # 0.8 K/mcL (0.0-0.6); Eosinophils % 5.6 %; Hematocrit 30.2 % (37.5-50.1); Hemoglobin 9.1 g/dL (12.9-16.9); Immature Granulocytes % 1.9 % (0-4); Lymphocytes # 5.4 K/mcL (0.6-4.6); Lymphocytes % 36.8 %; Mean Corpuscular HGB Conc 30.1 g/dL (31.6-35.5); Mean Corpuscular Hemoglobin 25.5 pg (28.0-33.3); Mean Corpuscular Volume 84.6 fL (83.0-100.0); Mean Platelet Volume 9.9 fL (9.4-12.4); Monocytes # 1.5 K/mcL (0.0-1.3); Neutrophils # 6.5 K/mcL (1.6-8.9); Nucleated Red Blood Cells 0.5 /100 WBC (0); Platelet Count 497 K/mcL (140-400); Red Blood Count 3.57 M/mcL (4.19-5.50); Red Cell Distribution Width 16.6 % (11.5-14.5); Segmented Neutrophils % 44.9 %; White Blood Count 14.5 K/mcL (4.3-11.1)
[2020-08-10 06:33] LABS: BUN/Creatinine Ratio 11 (6-26); Blood Urea Nitrogen 10 mg/dL (8-23); Calcium 8.2 mg/dL (8.6-10.3); Carbon Dioxide 27 mEq/L (23-29); Chloride 103 mEq/L (98-107); Glucose 110 mg/dL (70-105); Osmolality,Calculated 282 (280-300); Potassium 3.4 mEq/L (3.5-5.1); Sodium 136 mEq/L (136-145); eGFR For African Americans > 60 (> 60); eGFR For Non-African Americans > 60 (> 60)
[2020-08-10] MEDS: Finasteride 5 MG TABLET PO SCH (09:24)
[2020-08-10] MEDS: Famotidine 20 MG TABLET PO SCH ×2 (09:24→21:17)
[2020-08-10] MEDS: Vancomycin Oral Soln 125 MG/2.5 ML UDC PO SCH ×4 (09:25→21:17)
[2020-08-10] MEDS: MetroNIDAZOLE 500 MG/100 ML 500 MG/100 ML BAG IVPB SCH ×2 (09:26→16:31)
[2020-08-10] MEDS ORDERED: Ringers Solution, Lactated 1,000 ML IVC SCH (11:00)
[2020-08-11] MEDS: *HR* OxyCODONE Immed Rel 15 MG TABLET PO SCH ×6 (00:57→23:18)
[2020-08-11] MEDS: MetroNIDAZOLE 500 MG/100 ML 500 MG/100 ML BAG IVPB SCH ×2 (00:57→08:13)
[2020-08-11 03:36] LABS: Basophils # 0.1 K/mcL (0.0-0.2); Basophils % 0.8 %; Eosinophils # 0.9 K/mcL (0.0-0.6); Eosinophils % 6.1 %; Hematocrit 29.9 % (37.5-50.1); Hemoglobin 9.1 g/dL (12.9-16.9); Immature Granulocytes % 2.1 % (0-4); Lymphocytes # 5.2 K/mcL (0.6-4.6); Lymphocytes % 33.8 %; Mean Corpuscular HGB Conc 30.4 g/dL (31.6-35.5); Mean Corpuscular Hemoglobin 25.3 pg (28.0-33.3); Mean Corpuscular Volume 83.3 fL (83.0-100.0); Mean Platelet Volume 9.3 fL (9.4-12.4); Monocytes # 1.7 K/mcL (0.0-1.3); Neutrophils # 7.1 K/mcL (1.6-8.9); Nucleated Red Blood Cells 0.3 /100 WBC (0); Platelet Count 524 K/mcL (140-400); Red Blood Count 3.59 M/mcL (4.19-5.50); Red Cell Distribution Width 16.5 % (11.5-14.5); Segmented Neutrophils % 46.2 %; White Blood Count 15.4 K/mcL (4.3-11.1)
[2020-08-11 03:57] LABS: BUN/Creatinine Ratio 12 (6-26); Blood Urea Nitrogen 12 mg/dL (8-23); Calcium 8.2 mg/dL (8.6-10.3); Carbon Dioxide 28 mEq/L (23-29); Chloride 102 mEq/L (98-107); Glucose 115 mg/dL (70-105); Osmolality,Calculated 279 (280-300); Potassium 3.4 mEq/L (3.5-5.1); Sodium 134 mEq/L (136-145); eGFR For African Americans > 60 (> 60); eGFR For Non-African Americans > 60 (> 60)
[2020-08-11 03:59] LABS: Platelet Estimate Increased (Normal)
[2020-08-11] MEDS: *HR* Enoxaparin 40 MG/0.4 ML SYRINGE SQ SCH (04:33)
[2020-08-11] MEDS: Famotidine 20 MG TABLET PO SCH ×2 (08:12→20:14)
[2020-08-11] MEDS: Vancomycin Oral Soln 125 MG/2.5 ML UDC PO SCH ×3 (08:13→20:14)
[2020-08-11] MEDS: Finasteride 5 MG TABLET PO SCH (08:13)
[2020-08-11] MEDS ORDERED: *HR* FentaNYL (PF) 100 MCG/2 ML VIAL ONE (14:50)
[2020-08-11] MEDS ORDERED: Ondansetron 4 MG/2 ML VIAL ONE (14:50)
[2020-08-11] MEDS ORDERED: *HR* Etomidate 40 MG/20 ML VIAL IVP ONE (14:50)
[2020-08-11] MEDS ORDERED: *HR* Propofol 200 MG/20 ML VIAL IVP ONE (14:50)
[2020-08-11] MEDS ORDERED: *HR* PHENYLEPHRINE 1,000 MCG/10 ML SYRINGE IVP ONE (14:51)
[2020-08-11] MEDS ORDERED: Metoclopramide 10 MG/2 ML VIAL ONE (15:13)
[2020-08-11] MEDS ORDERED: Dexamethasone 4 MG/ML VIAL ONE (15:52)
[2020-08-11] MEDS ORDERED: Promethazine 6.25 MG in Water for inj. (sterile) 20 ML IVPB PRN (16:13)
[2020-08-11] MEDS ORDERED: Ondansetron 4 MG/2 ML VIAL IVP PRN (16:13)
[2020-08-11] MEDS ORDERED: *HR* HYDROmorphone PF 0.5 MG/0.5 ML SYRINGE IVP PRN (16:13)
[2020-08-11] MEDS ORDERED: *HR* OxyCODONE Immed Rel 5 MG TABLET PO PRN (16:13)
[2020-08-11] MEDS ORDERED: *HR* Succinylcholine 200 MG/10 ML VIAL IVP ONE (16:48)
[2020-08-11] MEDS ORDERED: *HR* OxyCODONE Immed Rel 15 MG TABLET PO PRN (17:50)
[2020-08-11] MEDS ORDERED: *HR* Metoprolol 5 MG/5 ML VIAL IVP PRN (17:50)
[2020-08-11] MEDS ORDERED: Prochlorperazine 10 MG/2 ML VIAL IVP PRN (17:50)
[2020-08-11] MEDS ORDERED: Acetaminophen 325 MG TABLET PO PRN (17:50)
[2020-08-11] MEDS ORDERED: Naloxone 0.4 MG/ML INJ IVP PRN (17:50)
[2020-08-12] MEDS: *HR* OxyCODONE Immed Rel 15 MG TABLET PO SCH ×3 (03:09→08:01)
[2020-08-12] MEDS ORDERED: *HR* Enoxaparin 40 MG/0.4 ML SYRINGE SQ SCH (06:00)
[2020-08-12 07:00] VITALS: BP 152/86
[2020-08-12] MEDS: Vancomycin Oral Soln 125 MG/2.5 ML UDC PO SCH (07:55)
[2020-08-12] MEDS: Famotidine 20 MG TABLET PO SCH (07:56)
[2020-08-12] MEDS ORDERED: Finasteride 5 MG TABLET PO SCH (09:00)
[2020-08-16 19:49] LABS: Calculi Mass 45 mg
== END 2020-08-12 11:25 | disposition home or self-care (01) | DRG 659 ==
LOC: SAMDAYPAV 08:04 → ICNU 12:29 → 2ANU 08-04 19:36
PROVIDERS: ADMIT Family Medicine; ATTEND Family Medicine

== ENCOUNTER 2021-06-08 19:45 | Inpatient (IN) ==
[2021-06-09] MEDS ORDERED: Ondansetron 4 MG/2 ML VIAL IVP PRN (00:54)
[2021-06-09] MEDS ORDERED: Naloxone 0.4 MG/ML INJ IVP PRN (00:54)
[2021-06-09] MEDS ORDERED: *HR* HYDROmorphone (PF) 1 MG/ML SYRINGE IVP PRN (00:58)
[2021-06-09] MEDS ORDERED: methylPREDNISolone 125 MG/2 ML VIAL IVP ONE (01:31)
[2021-06-09] MEDS ORDERED: Famotidine 20 MG/2 ML VIAL IVP ONE (01:33)
[2021-06-09] MEDS ORDERED: Pantoprazole 40 MG VIAL IVP SCH (02:00)
[2021-06-09 02:13] LABS: Basophils % 0.1 %; Eosinophils % 0.1 %; Hemoglobin 12.1 g/dL (12.9-16.9); Immature Granulocytes % 0.4 % (0-4); Lymphocytes # 2.7 K/mcL (0.6-4.6); Lymphocytes % 23.8 %; Mean Corpuscular HGB Conc 32.7 g/dL (31.6-35.5); Mean Corpuscular Hemoglobin 28.8 pg (28.0-33.3); Mean Corpuscular Volume 88.1 fL (83.0-100.0); Mean Platelet Volume 9.7 fL (9.4-12.4); Monocytes # 0.1 K/mcL (0.0-1.3); Monocytes % 0.5 %; Neutrophils # 8.4 K/mcL (1.6-8.9); Platelet Count 500 K/mcL (140-400); Red Cell Distribution Width 14.6 % (11.5-14.5); Segmented Neutrophils % 75.1 %; White Blood Count 11.2 K/mcL (4.3-11.1)
[2021-06-09 02:37] LABS: Poikilocytosis 1+ (Not Present); Reactive Lymphocytes Present (Not Present)
[2021-06-09 02:44] LABS: Alanine Aminotransferase 8 Units/L (7-52); Albumin 4.3 g/dL (3.5-5.7); Albumin/Globulin Ratio 1.2 (1.1-2.2); Alkaline Phosphatase 90 Units/L (34-104); Aspartate Amino Transferase 17 Units/L (13-39); BUN/Creatinine Ratio 14 (6-26); Bilirubin,Total 0.3 mg/dL (0.3-1.0); Blood Urea Nitrogen 14 mg/dL (8-23); Calcium 9.4 mg/dL (8.6-10.3); Carbon Dioxide 17 mEq/L (23-29); Chloride 107 mEq/L (98-107); Globulin 3.7 g/dL (2.4-3.5); Glucose 161 mg/dL (70-105); Magnesium 1.7 mg/dL (1.6-2.6); Osmolality,Calculated 290 (280-300); Phosphorous 2.5 mg/dL (2.7-4.5); Potassium 3.5 mEq/L (3.5-5.1); Sodium 138 mEq/L (136-145); Troponin I 0.04 ng/mL (< 0.04); eGFR For African Americans > 60 (> 60); eGFR For Non-African Americans > 60 (> 60)
[2021-06-09] MEDS ORDERED: EPINEPHrine 1 MG/ML VIAL IM ONE (03:06)
[2021-06-09] MEDS ORDERED: MethylPREDNISolone 40 MG/ML VIAL IVP ONE (08:01)
[2021-06-09] MEDS ORDERED: Loratadine 10 MG TABLET PO ONE (08:01)
[2021-06-09] MEDS ORDERED: SODIUM CHLORIDE/NAHCO3/KCL/PEG 4,000 ML SOLN.RECON PO ONE (17:00)
[2021-06-09] MEDS ORDERED: polyethylene glycoL 3350 17 GM POWD.PACK PO PRN (17:12)
[2021-06-09] MEDS: amLODIPine 5 MG TABLET PO SCH (18:11)
[2021-06-09] MEDS: Famotidine 20 MG/2 ML VIAL IVP SCH (18:11)
[2021-06-10] MEDS: Famotidine 20 MG/2 ML VIAL IVP SCH ×2 (05:20→19:02)
[2021-06-10 06:24] LABS: Basophils % 0.1 %; Hematocrit 34.2 % (37.5-50.1); Hemoglobin 11.1 g/dL (12.9-16.9); Immature Granulocytes % 0.6 % (0-4); Lymphocytes # 3.2 K/mcL (0.6-4.6); Mean Corpuscular HGB Conc 32.5 g/dL (31.6-35.5); Mean Corpuscular Hemoglobin 28.8 pg (28.0-33.3); Mean Corpuscular Volume 88.6 fL (83.0-100.0); Mean Platelet Volume 9.7 fL (9.4-12.4); Monocytes # 1.2 K/mcL (0.0-1.3); Monocytes % 6.5 %; Platelet Count 438 K/mcL (140-400); Red Blood Count 3.86 M/mcL (4.19-5.50); Red Cell Distribution Width 14.9 % (11.5-14.5); Segmented Neutrophils % 75.8 %
[2021-06-10 06:56] LABS: Neutrophils # 14.2 K/mcL (1.6-8.9); White Blood Count 18.7 K/mcL (4.3-11.1)
[2021-06-10 07:13] LABS: BUN/Creatinine Ratio 20 (6-26); Blood Urea Nitrogen 27 mg/dL (8-23); Calcium 9.3 mg/dL (8.6-10.3); Carbon Dioxide 20 mEq/L (23-29); Chloride 105 mEq/L (98-107); Glucose 117 mg/dL (70-105); Magnesium 2.1 mg/dL (1.6-2.6); Osmolality,Calculated 292 (280-300); Phosphorous 4.4 mg/dL (2.7-4.5); Potassium 3.7 mEq/L (3.5-5.1); Sodium 138 mEq/L (136-145); eGFR For African Americans > 60 (> 60); eGFR For Non-African Americans 51 (> 60)
[2021-06-10] MEDS ORDERED: Lidocaine -MPF 2% 5 ML VIAL ONE (07:39)
[2021-06-10] MEDS ORDERED: 0.9 % Sodium Chloride 1,000 ML IVC ONE (09:36)
[2021-06-10] MEDS ORDERED: 0.9 % Sodium Chloride 1,000 ML IVC SCH (09:45)
[2021-06-10 12:32] LABS: Bilirubin,Urine Negative (Negative); Blood,Urine Negative (Negative); Clarity,Urine Clear (Clear); Color,Urine Light-Yellow (Yellow); Glucose,Urine (UA) Normal (Normal); Hyaline Casts,Urine Few per lpf (None Seen); Ketones,Urine Negative (Negative); Leukocyte Esterase,Urine Negative (Negative); Mucus,Urine Few per lpf (None-Few); Nitrite,Urine Negative (Negative); Protein,Urine 30 mg/dL (Neg-Trace); RBC,Urine 0-3 per hpf (0-3); Renal Epithelial Cells,Urine Few per hpf (None-Few); Squamous Epithelial Cell,Urine Few per hpf (None-Few); Transitional Epi Cells,Urine Few per hpf (None-Few); Urobilinogen,Urine Normal (Normal); WBC,Urine 0-3 per hpf (0-3)
[2021-06-10] MEDS: amLODIPine 5 MG TABLET PO SCH (19:02)
[2021-06-11 03:26] VITALS: O2SAT 97
[2021-06-11] MEDS: Famotidine 20 MG/2 ML VIAL IVP SCH (04:21)
[2021-06-11 06:06] LABS: Hematocrit 32.6 % (37.5-50.1); Hemoglobin 10.5 g/dL (12.9-16.9); Mean Corpuscular HGB Conc 32.2 g/dL (31.6-35.5); Mean Corpuscular Hemoglobin 28.4 pg (28.0-33.3); Mean Corpuscular Volume 88.1 fL (83.0-100.0); Mean Platelet Volume 9.6 fL (9.4-12.4); Platelet Count 397 K/mcL (140-400); White Blood Count 10.8 K/mcL (4.3-11.1)
[2021-06-11 06:27] LABS: BUN/Creatinine Ratio 22 (6-26); Blood Urea Nitrogen 21 mg/dL (8-23); Calcium 8.6 mg/dL (8.6-10.3); Carbon Dioxide 22 mEq/L (23-29); Chloride 105 mEq/L (98-107); Glucose 134 mg/dL (70-105); Osmolality,Calculated 285 (280-300); Potassium 3.8 mEq/L (3.5-5.1); Sodium 135 mEq/L (136-145); eGFR For African Americans > 60 (> 60); eGFR For Non-African Americans > 60 (> 60)
[2021-06-11 07:07] VITALS: BP 157/84; PULSE 88; TEMP 97.5
[2021-06-11] MEDS ORDERED: Famotidine 20 MG/2 ML VIAL IVP SCH (18:00)
== END 2021-06-11 18:06 | disposition home or self-care (01) | DRG 682 ==
LOC: 3ANU → SUATTDRO 23:59
PROVIDERS: ADMIT Internal Medicine; ATTEND Internal Medicine